=== PATIENT | male | born 1985 | race Caucasian/White ===

== ENCOUNTER 2018-07-21 18:54 | Emergency (ER) | payer MEDICAID ==
[~2018-07-21] VITALS: Ht 180.3 cm; Wt 84.4 kg
[~2018-07-21 18:54] MED LIST: METHADONE PO
[2018-07-21 19:00] VITALS: BP 138/68
[2018-07-21] MEDS ORDERED: LIDOCAINE W/ EPINEPHRINE 1 % INJ 30ML ONE (20:02)
[2018-07-21] MEDS ORDERED: LIDOCAINE W/ EPINEPHRINE 1% 20ML VIAL ID ONE (20:15)
[2018-07-21] MEDS ORDERED: cefTRIAXone SOD 1,000 MG VL ONE ×2 (20:26→20:28)
[2018-07-21] MEDS ORDERED: LIDOCAINE 1% (LOCAL ANESTH.) PF 5ml SDV ONE (20:27)
[2018-07-21] MEDS ORDERED: cefTRIAXone SOD 1,000 MG VL IM ONE ×2 (20:30→20:45)
== END 2018-07-22 01:55 | disposition home or self-care (01) ==
LOC: ER 18:54
DX: L02.416 Cutaneous abscess of left lower limb (principal); F32.9 Major depressive disorder, single episode, unspecified; F11.10 Opioid abuse, uncomplicated
CPT/HCPCS: 10060; 96372; 99283; J0696; J2001

== ENCOUNTER 2020-12-09 03:36 | Emergency (ER) | payer MEDICARE, MEDICAID ==
[~2020-12-09] VITALS: Ht 180.3 cm; Wt 83.9 kg
[2020-12-09 03:39] VITALS: BP 140/95
== END 2020-12-09 04:52 | disposition left against medical advice (07) ==
LOC: ER 03:39
DX: L02.413 Cutaneous abscess of right upper limb (principal); Z53.21 Procedure and treatment not carried out due to patient leaving prior to being seen by health care provider

== ENCOUNTER 2020-12-15 11:25 | Emergency (ER) | payer MEDICARE, MEDICAID ==
[~2020-12-15] VITALS: Ht 180.3 cm; Wt 83.9 kg
[2020-12-15 11:33] VITALS: BP 146/93
[2020-12-15] MEDS ORDERED: LIDOCAINE 1% HCL (LOCAL ANESTH.) INJ 20ML MDV IJ ONE (12:15)
[2020-12-15] MEDS ORDERED: cefTRIAXone SOD 1,000 MG VL IM ONE (12:15)
== END 2020-12-15 14:49 | disposition home or self-care (01) ==
LOC: ER 11:25
DX: L02.413 Cutaneous abscess of right upper limb (principal)
CPT/HCPCS: 10060; 96372; 99283; J0696; J2001

== ENCOUNTER 2021-09-07 08:21 | Inpatient (IN) | payer MEDICARE, MEDICAID ==
[~2021-09-07] VITALS: Ht 180.3 cm; Wt 81.6 kg
[2021-09-07] MEDS ORDERED: CLINDAMYCIN 900MG IV 50 ML IV ONE (09:30)
[2021-09-07] MEDS ORDERED: cefTRIAXone 1GM/50ML D5W 50 ML IV ONE (09:30)
[2021-09-07 10:35] LABS: Basophils # (auto) 0 10 ^3/uL (0-0.2); Basophils % (auto) 0.5 % (0.0-2.0); Eosinophils # (auto) 0.1 10 ^3/uL (0-0.8); Eosinophils % (auto) 1.6 % (0.0-7.0); Hematocrit 38.1 % (41.0-53.0); Hemoglobin 12.6 g/dL (13.5-17.5); Lymphocytes % (auto) 23.4 % (10.0-50.0); Mean Corpuscular Hemoglobin 29.3 pg (28.0-32.0); Mean Corpuscular Hgb Conc. 33.1 g/dL (32.0-36.0); Mean Corpuscular Volume 88.6 fL (80.0-100.0); Monocytes # (auto) 0.6 10 ^3/uL (0-1.3); Monocytes % (auto) 7.5 % (0.0-12.0); Neutrophils # (auto) 5.7 10 ^3/uL (1.6-8.6); Red Cell Distribution Width 12.8 % (11.8-14.3); White Blood Cell 8.5 10^3/uL (4.4-10.8)
[2021-09-07 10:49] LABS: Albumin 2.9 g/dL (3.4-5.0); Anion Gap 11 (5-15); Blood Urea Nitrogen 14 mg/dL (7-18); Calcium 8.4 mg/dL (8.5-10.1); Carbon Dioxide 22 mmol/L (21-32); Chloride 102 mmol/L (98-107); Glucose 122 mg/dL (74-106); Potassium 3.5 mmol/L (3.5-5.1); Sodium 135 mmol/L (136-145)
[2021-09-07 10:51] LABS: Alanine Aminotransferase 20 U/L (16-61); Aspartate Aminotransferase 18 U/L (15-37); BUN/Creatinine Ratio 13.9; GFR African American 107 mL/min; GFR Non-African American 89 mL/min
[2021-09-07 10:56] LABS: Alkaline Phosphatase 107 U/L (45-117); Bilirubin, Total 0.5 mg/dL (0.2-1.0); Total Protein 8.4 g/dL (6.4-8.2)
[2021-09-07] MEDS ORDERED: NITROGLYCERIN 0.4 MG SL TAB SL PRN (13:45)
[2021-09-07] MEDS ORDERED: MORPHINE SULFATE INJECTION 2 MG/ML SYRG IV PRN ×2 (13:45)
[2021-09-07] MEDS ORDERED: ALPRAZolam 0.25 MG TAB PO PRN (13:45)
[2021-09-07] MEDS ORDERED: CLINDAMYCIN 300MG IV 50 ML IV SCH (14:00)
[2021-09-07 16:44] VITALS: BP 130/70
[2021-09-07 17:00] VITALS: BP 115/70
[2021-09-08] MEDS ORDERED: cefTRIAXone 1GM/50ML D5W 50 ML IV SCH (09:00)
[2021-09-11] MEDS ORDERED: DOXY-286 PO (11:10)
[2021-09-11] MEDS ORDERED: MUPI2CRE17 EX (11:10)
== END 2021-09-07 22:07 | disposition left against medical advice (07) | DRG 603 ==
LOC: ER 08:21 → TELE 13:35 → TELE-EAST 16:53
PROVIDERS: ADMIT Nurse Practitioner Acute Care; ATTEND Nurse Practitioner Acute Care
DX: L02.414 Cutaneous abscess of left upper limb (principal); E44.0 Moderate protein-calorie malnutrition; I38 Endocarditis, valve unspecified; F11.10 Opioid abuse, uncomplicated; F15.10 Other stimulant abuse, uncomplicated; F32.A Depression, unspecified; R59.0 Localized enlarged lymph nodes; Z20.822 Contact with and (suspected) exposure to COVID-19
CPT/HCPCS: 36415; 73200; 80053; 84484; 85025; 87426; 93005; 96365; G0378; J0696; J3490

== ENCOUNTER 2021-09-08 13:42 | Inpatient (IN) | payer MEDICARE, MEDICAID ==
[~2021-09-08] VITALS: Ht 175.3 cm; Wt 81.7 kg
[2021-09-08] MEDS ORDERED: CLINDAMYCIN 900MG IV 50 ML IV ONE (16:15)
[2021-09-08] MEDS ORDERED: cefTRIAXone 1GM/50ML D5W 50 ML IV ONE (16:15)
[2021-09-08] MEDS ORDERED: HYDROcodone-ACET 5/325MG TAB PO PRN (18:15)
[2021-09-08] MEDS ORDERED: NITROGLYCERIN 0.4 MG SL TAB SL PRN (18:15)
[2021-09-08] MEDS ORDERED: ACETAMINOPHEN 500 MG TAB PO PRN (18:15)
[2021-09-08] MEDS ORDERED: ALPRAZolam 0.25 MG TAB PO PRN (18:15)
[2021-09-08] MEDS ORDERED: MORPHINE SULFATE INJECTION 2 MG/ML SYRG IV PRN ×2 (18:15)
[2021-09-08] MEDS: SODIUM CHLORIDE 0.9% 1,000 ML IV SCH (18:15)
[2021-09-08] MEDS ORDERED: CLINDAMYCIN HCL 150 MG CAP PO ONE (18:15)
[2021-09-08] MEDS ORDERED: ONDANSETRON HCL 4 MG/2 ML VIAL IV PRN (18:15)
[2021-09-08] MEDS ORDERED: SULFAMETHOX W/TRIMETH(800/160MG) DS TAB PO ONE (18:15)
[2021-09-08] MEDS ORDERED: VANCOMYCIN PER PHARMACY 0 MG IV SCH (19:15)
[2021-09-08] MEDS ORDERED: VANCOMYCIN 1GM/250ML 250 ML IV ONE (20:30)
[2021-09-09] MEDS: SODIUM CHLORIDE 0.9% 1,000 ML IV SCH ×2 (04:15→14:25)
[2021-09-09 10:52] LABS: Basophils # (auto) 0 10 ^3/uL (0-0.2); Basophils % (auto) 0.4 % (0.0-2.0); Eosinophils # (auto) 0.1 10 ^3/uL (0-0.8); Eosinophils % (auto) 1.3 % (0.0-7.0); Hematocrit 36.3 % (41.0-53.0); Hemoglobin 12.2 g/dL (13.5-17.5); Lymphocytes # (auto) 1.1 10 ^3/uL (0.4-5.4); Lymphocytes % (auto) 12.7 % (10.0-50.0); Mean Corpuscular Hemoglobin 29.8 pg (28.0-32.0); Mean Corpuscular Hgb Conc. 33.5 g/dL (32.0-36.0); Mean Corpuscular Volume 88.9 fL (80.0-100.0); Monocytes # (auto) 0.6 10 ^3/uL (0-1.3); Monocytes % (auto) 6.9 % (0.0-12.0); Neutrophils # (auto) 6.6 10 ^3/uL (1.6-8.6); Neutrophils % (auto) 78.7 % (37.0-80.0); Red Blood Cells 4.08 10^6/uL (4.5-5.90); Red Cell Distribution Width 12.7 % (11.8-14.3); White Blood Cell 8.4 10^3/uL (4.4-10.8)
[2021-09-09 11:08] LABS: Albumin 2.8 g/dL (3.4-5.0); Calcium 8.8 mg/dL (8.5-10.1); Potassium 3.9 mmol/L (3.5-5.1)
[2021-09-09] MEDS: cefTRIAXone 1GM/50ML D5W 50 ML IV SCH (11:08)
[2021-09-09 11:13] LABS: BUN/Creatinine Ratio 12.2; Bilirubin, Total 0.3 mg/dL (0.2-1.0); Total Protein 8.1 g/dL (6.4-8.2)
[2021-09-09 11:35] LABS: INR 1.12 (0.9-1.15); Partial Thromboplastin Time 35.2 sec (23.6-33.0)
[2021-09-09] MEDS: VANCOMYCIN 1GM/250ML 250 ML IV SCH (12:16)
[2021-09-09 17:20] VITALS: BP 144/91
[2021-09-09 20:35] LABS: Amphetamine Screen, Urine POSITIVE (NEGATIVE); Barbiturate Scree,Urine NEGATIVE (NEGATIVE); Benzodiazephine Screen, Urine NEGATIVE (NEGATIVE); Cannabinoid Screen, Urine NEGATIVE (NEGATIVE); Cocaine Screen, Urine NEGATIVE (NEGATIVE); Opiate Scree,Urine POSITIVE (NEGATIVE); Phencyclidine Screen, Urine NEGATIVE (NEGATIVE)
[2021-09-09 22:00] VITALS: BP 116/64
[2021-09-10] MEDS: VANCOMYCIN 1GM/250ML 250 ML IV SCH ×2 (00:04→12:51)
[2021-09-10] MEDS: SODIUM CHLORIDE 0.9% 1,000 ML IV SCH ×3 (00:04→18:11)
[2021-09-10 05:00] VITALS: BP 117/66
[2021-09-10 09:07] VITALS: BP 129/73
[2021-09-10] MEDS: cefTRIAXone 1GM/50ML D5W 50 ML IV SCH (09:08)
[2021-09-10 10:33] LABS: Basophils # (auto) 0 10 ^3/uL (0-0.2); Basophils % (auto) 0.4 % (0.0-2.0); Eosinophils # (auto) 0.2 10 ^3/uL (0-0.8); Eosinophils % (auto) 2.4 % (0.0-7.0); Hematocrit 37.2 % (41.0-53.0); Hemoglobin 12.1 g/dL (13.5-17.5); Lymphocytes # (auto) 1.2 10 ^3/uL (0.4-5.4); Lymphocytes % (auto) 17.1 % (10.0-50.0); Mean Corpuscular Hgb Conc. 32.5 g/dL (32.0-36.0); Mean Corpuscular Volume 89.3 fL (80.0-100.0); Monocytes # (auto) 0.5 10 ^3/uL (0-1.3); Monocytes % (auto) 6.8 % (0.0-12.0); Neutrophils # (auto) 5.2 10 ^3/uL (1.6-8.6); Neutrophils % (auto) 73.3 % (37.0-80.0); Nucleated Red Blood Cells % 0.1 %; Red Blood Cells 4.17 10^6/uL (4.5-5.90); Red Cell Distribution Width 12.6 % (11.8-14.3); White Blood Cell 7.1 10^3/uL (4.4-10.8)
[2021-09-10 10:44] LABS: BUN/Creatinine Ratio 13.6; Calcium 8.2 mg/dL (8.5-10.1); Magnesium 2.3 mg/dL (1.6-2.6); Potassium 4.1 mmol/L (3.5-5.1)
[2021-09-10 13:00] VITALS: BP 111/73
[2021-09-10 16:48] VITALS: BP 149/91
[2021-09-10] MEDS: MUPIROCIN 2% OINT 15gm or 22gm EACHNOSTRI SCH (22:00)
[2021-09-10 22:02] VITALS: BP 100/57
[2021-09-11] MEDS: VANCOMYCIN 1GM/250ML 250 ML IV SCH ×2 (00:19→12:00)
[2021-09-11 05:05] VITALS: BP 128/78
[2021-09-11 08:30] VITALS: BP 123/59
[2021-09-11] MEDS: SODIUM CHLORIDE 0.9% 1,000 ML IV SCH (09:25)
[2021-09-11] MEDS: cefTRIAXone 1GM/50ML D5W 50 ML IV SCH (09:43)
[2021-09-11] MEDS: MUPIROCIN 2% OINT 15gm or 22gm EACHNOSTRI SCH (09:52)
[2021-09-11] MEDS ORDERED: DOXY-286 PO (11:10)
[2021-09-11] MEDS ORDERED: MUPI2CRE17 EX (11:10)
== END 2021-09-11 15:12 | disposition home or self-care (01) | DRG 603 ==
LOC: ER 13:42 → TELE 18:04 → TELE-WESTW 09-09 16:10
PROVIDERS: ADMIT Nurse Practitioner Acute Care; ATTEND Internal Medicine
PROC: 05HB33Z Insertion of Infusion Device into Right Basilic Vein, Percutaneous Approach (ICD-10-PCS; principal; 2021-09-09)
PROC: B54MZZA Ultrasonography of Right Upper Extremity Veins, Guidance (ICD-10-PCS; 2021-09-09)
DX: L03.114 Cellulitis of left upper limb (principal); L02.414 Cutaneous abscess of left upper limb; F11.10 Opioid abuse, uncomplicated; F15.10 Other stimulant abuse, uncomplicated; Z20.822 Contact with and (suspected) exposure to COVID-19; Z91.19 Patient's noncompliance with other medical treatment and regimen; B95.62 Methicillin resistant Staphylococcus aureus infection as the cause of diseases classified elsewhere
CPT/HCPCS: 36415; 76881; 80048; 80053; 80202; 80307; 83735; 85025; 85610; 85730; 87040; 87077; 87081; 87186; 87205; 87426; 93306; G0378; J0696

== ENCOUNTER 2022-07-10 17:13 | Emergency (ER) | payer MEDICAID, MEDICARE ==
[~2022-07-10] VITALS: Ht 180.3 cm; Wt 87.0 kg
[~2022-07-10 17:13] MED LIST changes: +DOXY-286 PO; +MUPI2CRE17 EX
[2022-07-10 17:41] VITALS: BP 127/89
== END 2022-07-10 17:41 ==
LOC: ER 17:13
DX: F17.210 Nicotine dependence, cigarettes, uncomplicated; Z79.2 Long term (current) use of antibiotics; Z79.899 Other long term (current) drug therapy

== ENCOUNTER → 2022-09-19 | Emergency (ER) | payer MEDICAID ==
[~2022-09-19] VITALS: Ht 180.3 cm; Wt 84.0 kg
[2022-09-20] VITALS: BP 160/87
== END | disposition home or self-care (01) ==
LOC: ER 21:38
DX: F15.10 Other stimulant abuse, uncomplicated (principal); F11.10 Opioid abuse, uncomplicated; F17.210 Nicotine dependence, cigarettes, uncomplicated

== ENCOUNTER 2022-10-19 08:12 | Emergency (ER) | payer MEDICAID ==
[~2022-10-19] VITALS: Ht 180.3 cm; Wt 84.0 kg
[2022-10-19 09:45] VITALS: BP 139/93
[2022-10-19 16:17] LABS: Urine Bacteria MANY /hpf (None Seen); Urine Blood Negative /uL (Negative); Urine Mucus FEW (None Seen); Urine Specific Gravity 1.028 (1.001-1.035); Urine Sperm PRESENT /hpf (None Seen); Urine WBC <1 /hpf (0 - 3)
== END 2022-10-19 20:41 | disposition left against medical advice (07) ==
LOC: ER 08:12
DX: H57.89 Other specified disorders of eye and adnexa (principal); R07.89 Other chest pain; Z53.21 Procedure and treatment not carried out due to patient leaving prior to being seen by health care provider
CPT/HCPCS: 81001; 93005

== ENCOUNTER 2022-11-04 16:55 | Emergency (ER) | payer MEDICAID ==
[~2022-11-04] VITALS: Ht 180.3 cm; Wt 84.0 kg
[2022-11-04 19:29] VITALS: BP 155/87
[2022-11-04 20:12] LABS: Urine Bacteria FEW /hpf (None Seen); Urine Blood Negative /uL (Negative); Urine Hyaline Cast FEW /lpf (0 - 2); Urine Mucus FEW (None Seen); Urine Specific Gravity 1.028 (1.001-1.035); Urine Sperm PRESENT /hpf (None Seen); Urine WBC 2 /hpf (0 - 3)
== END 2022-11-05 07:35 | disposition left against medical advice (07) ==
LOC: ER 16:55
DX: R60.9 Edema, unspecified (principal); F11.10 Opioid abuse, uncomplicated; F17.210 Nicotine dependence, cigarettes, uncomplicated; F15.10 Other stimulant abuse, uncomplicated
CPT/HCPCS: 71045; 81001; 93005

== ENCOUNTER 2022-11-12 17:54 | Emergency (ER) | payer MEDICAID ==
[~2022-11-12] VITALS: Ht 182.9 cm; Wt 85.6 kg
[2022-11-12] MEDS ORDERED: cloNIDine HCL 0.1 MG TAB PO ONE (19:15)
[2022-11-12] MEDS ORDERED: levoFLOXacin 500 MG TAB PO ONE (19:15)
[2022-11-12 20:04] LABS: Basophils # (auto) 0 10 ^3/uL (0-0.2); Basophils % (auto) 0.6 % (0.0-2.0); Eosinophils # (auto) 0.1 10 ^3/uL (0-0.8); Eosinophils % (auto) 1.8 % (0.0-7.0); Hematocrit 39.8 % (41.0-53.0); Hemoglobin 13.1 g/dL (13.5-17.5); Lymphocytes % (auto) 22.1 % (10.0-50.0); Mean Corpuscular Hemoglobin 29.8 pg (28.0-32.0); Mean Corpuscular Hgb Conc. 32.9 g/dL (32.0-36.0); Mean Corpuscular Volume 90.6 fL (80.0-100.0); Monocytes # (auto) 0.3 10 ^3/uL (0-1.3); Monocytes % (auto) 6.4 % (0.0-12.0); Neutrophils # (auto) 3.1 10 ^3/uL (1.6-8.6); Neutrophils % (auto) 69.1 % (37.0-80.0); Red Blood Cells 4.39 10^6/uL (4.5-5.90); Red Cell Distribution Width 12.6 % (11.8-14.3); White Blood Cell 4.5 10^3/uL (4.4-10.8)
[2022-11-12 20:21] LABS: INR 1.03 (0.9-1.15)
[2022-11-12] MEDS ORDERED: BACDST PO (21:24)
[2022-11-12] MEDS ORDERED: CEPH-510 PO (21:25)
[2022-11-12 22:36] LABS: Albumin 3.8 g/dL (3.4-5.0); Calcium 8.9 mg/dL (8.5-10.1); Potassium 3.6 mmol/L (3.5-5.1)
[2022-11-12 22:38] LABS: BUN/Creatinine Ratio 18.2
[2022-11-12 22:41] LABS: Bilirubin, Total 0.4 mg/dL (0.2-1.0); Total Protein 8.1 g/dL (6.4-8.2)
[2022-11-13 04:13] VITALS: BP 146/94
== END 2022-11-13 04:33 | disposition home or self-care (01) ==
LOC: ER 17:54
DX: L03.116 Cellulitis of left lower limb (principal); I10 Essential (primary) hypertension; F32.9 Major depressive disorder, single episode, unspecified; F17.210 Nicotine dependence, cigarettes, uncomplicated; F15.90 Other stimulant use, unspecified, uncomplicated; Z79.899 Other long term (current) drug therapy
CPT/HCPCS: 36415; 73590; 73610; 73630; 80053; 85025; 85379; 85610; 85730; 87040; 93971

== ENCOUNTER 2023-03-16 13:21 | Emergency (ER) | payer MEDICARE, MEDICAID ==
[~2023-03-16] VITALS: Ht 180.3 cm; Wt 84.0 kg
[~2023-03-16 13:21] MED LIST changes: +BACDST PO; +CEPH-510 PO
[2023-03-16 15:00] VITALS: BP 150/90
[2023-03-16] MEDS ORDERED: DIPH25CA66 PO (15:18)
[2023-03-16] MEDS ORDERED: HYD1TP TOP (15:18)
== END 2023-03-16 15:22 | disposition home or self-care (01) ==
LOC: ER 13:21 → OVERFLOW 03-17 13:49 → UNDOADMIN 03-17 13:49 → UNDODISIN 03-17 15:19
DX: L25.9 Unspecified contact dermatitis, unspecified cause (principal); F17.210 Nicotine dependence, cigarettes, uncomplicated; F15.10 Other stimulant abuse, uncomplicated; F14.10 Cocaine abuse, uncomplicated
CPT/HCPCS: G0378

== ENCOUNTER 2023-04-05 20:37 | Emergency (ER) | payer MEDICARE, MEDICAID ==
[~2023-04-05] VITALS: Ht 180.3 cm; Wt 185.0 kg
[~2023-04-05 20:37] MED LIST changes: +DIPH25CA66 PO; +HYD1TP TOP
[2023-04-06 06:08] VITALS: BP 144/71
== END 2023-04-06 06:15 | disposition home or self-care (01) ==
LOC: ER 20:37
DX: L85.3 Xerosis cutis (principal); F11.10 Opioid abuse, uncomplicated; F15.10 Other stimulant abuse, uncomplicated; F17.210 Nicotine dependence, cigarettes, uncomplicated; Z79.2 Long term (current) use of antibiotics; Z79.899 Other long term (current) drug therapy
CPT/HCPCS: 86592

== ENCOUNTER 2023-05-24 22:10 | Emergency (ER) | payer MEDICARE, MEDICAID ==
[~2023-05-24] VITALS: Ht 180.3 cm; Wt 86.4 kg
[2023-05-25 02:05] VITALS: BP 146/75
[2023-05-25 02:08] LABS: Urine Bacteria MOD /hpf (None Seen); Urine Blood Negative /uL (Negative); Urine Mucus FEW (None Seen); Urine Specific Gravity 1.028 (1.001-1.035); Urine Sperm PRESENT /hpf (None Seen); Urine WBC 2 /hpf (0 - 3)
[2023-05-25 02:48] LABS: Amphetamine Screen, Urine POSITIVE (NEGATIVE); Barbiturate Scree,Urine NEGATIVE (NEGATIVE); Benzodiazephine Screen, Urine NEGATIVE (NEGATIVE); Cannabinoid Screen, Urine NEGATIVE (NEGATIVE); Cocaine Screen, Urine NEGATIVE (NEGATIVE); Opiate Scree,Urine NEGATIVE (NEGATIVE)
[2023-05-25 02:55] LABS: Phencyclidine Screen, Urine NEGATIVE (NEGATIVE)
[2023-05-25 05:29] LABS: Alcohol, Urine < 3.0 mg/dL (0-10)
[2023-05-27 05:07] LABS: RPR Non Reactive (Non Reactive)
== END 2023-05-25 02:54 | disposition left against medical advice (07) ==
LOC: ER 22:17
DX: R22.33 Localized swelling, mass and lump, upper limb, bilateral (principal); Z79.899 Other long term (current) drug therapy; Z53.21 Procedure and treatment not carried out due to patient leaving prior to being seen by health care provider
CPT/HCPCS: 80307; 81001; 86592; 87491; 87591; 99281; C9803

== ENCOUNTER 2023-10-04 18:10 | Emergency (ER) | payer MEDICARE, MEDICAID ==
[~2023-10-04] VITALS: Ht 182.9 cm; Wt 81.8 kg
[2023-10-04 22:00] VITALS: BP 150/89; PULSE 107; TEMP 98.9
[2023-10-05 01:13] VITALS: RESP 14; O2SAT 100
[2023-10-05 02:04] LABS: Amphetamine Screen, Urine Pos (NEGATIVE); Barbiturate Scree,Urine Neg (NEGATIVE); Benzodiazephine Screen, Urine Neg (NEGATIVE); Cannabinoid Screen, Urine Neg (NEGATIVE); Cocaine Screen, Urine Neg (NEGATIVE); Opiate Scree,Urine Neg (NEGATIVE); Phencyclidine Screen, Urine Neg (NEGATIVE)
[2023-10-05 02:11] LABS: Urine Bacteria FEW /hpf (None Seen); Urine Blood Negative /uL (Negative); Urine Clarity Clear (Clear); Urine Protein, UAD Negative (Negative); Urine Specific Gravity 1.013 (1.001-1.035); Urine Sperm PRESENT /hpf (None Seen); Urine Urobilinogen Normal (Negative); Urine WBC 4 /hpf (0 - 3)
[2023-10-05 02:13] LABS: Basophils # (auto) 0 10 ^3/uL (0-0.2); Basophils % (auto) 0.6 % (0.0-2.0); Eosinophils # (auto) 0.1 10 ^3/uL (0-0.8); Eosinophils % (auto) 2.5 % (0.0-7.0); Hematocrit 34.6 % (41.0-53.0); Hemoglobin 11.5 g/dL (13.5-17.5); Lymphocytes # (auto) 1.6 10 ^3/uL (0.4-5.4); Lymphocytes % (auto) 28.7 % (10.0-50.0); Mean Corpuscular Hemoglobin 29.5 pg (28.0-32.0); Mean Corpuscular Hgb Conc. 33.1 g/dL (32.0-36.0); Mean Corpuscular Volume 89.3 fL (80.0-100.0); Monocytes # (auto) 0.6 10 ^3/uL (0-1.3); Monocytes % (auto) 10.1 % (0.0-12.0); Neutrophils # (auto) 3.3 10 ^3/uL (1.6-8.6); Neutrophils % (auto) 58.1 % (37.0-80.0); Nucleated Red Blood Cells % 0.1 %; Red Blood Cells 3.88 10^6/uL (4.5-5.90); Red Cell Distribution Width 12.3 % (11.8-14.3); White Blood Cell 5.6 10^3/uL (4.4-10.8)
[2023-10-05 02:28] LABS: INR 1.09 (0.9-1.15); Partial Thromboplastin Time 37.3 SEC (24.5-34.5); Prothrombin Time 11.4 sec (9.3-11.8)
[2023-10-05 02:30] LABS: Urine Color STRAW (Yellow)
[2023-10-05 02:32] LABS: Alanine Aminotransferase 23 U/L (7-40); Albumin 3.8 g/dL (3.2-4.8); Alkaline Phosphatase 92 U/L (46-116); Anion Gap 5 (5-15); Aspartate Aminotransferase 25 U/L (13-40); BUN/Creatinine Ratio 10.9 (10.0-20.0); Blood Alcohol < 3.0 mg/dL (<10); Blood Urea Nitrogen 11 mg/dL (9-23); Carbon Dioxide 26 mmol/L (20-30); Chloride 108 mmol/L (98-107); Glucose 102 mg/dL (74-106); Lipase 44 U/L (12-53); Potassium 3.6 mmol/L (3.5-5.1); Sodium 139 mmol/L (136-145)
[2023-10-05 02:33] LABS: Bilirubin, Total 0.4 mg/dL (0.2-1.0); Total Protein 6.4 g/dL (5.7-8.2)
== END 2023-10-05 06:59 | disposition home or self-care (01) ==
LOC: EDBD 18:10 → EDUNIT# 18:10 → ER 18:10
DX: F22 Delusional disorders (principal); F23 Brief psychotic disorder; F15.10 Other stimulant abuse, uncomplicated; F41.9 Anxiety disorder, unspecified; F17.210 Nicotine dependence, cigarettes, uncomplicated; Z79.899 Other long term (current) drug therapy
CPT/HCPCS: 36415; 80053; 80307; 80320; 80329; 81001; 82010; 82140; 82553; 83605; 83690; 83735; 83880; 83930; 84443; 84484; 85025; 85610; 85730

== ENCOUNTER 2023-12-08 17:50 | Emergency (ER) | payer MEDICARE, MEDICAID ==
[~2023-12-08] VITALS: Ht 182.9 cm; Wt 85.0 kg
[2023-12-08 17:55] VITALS: BP 139/93; PULSE 100; RESP 18; O2SAT 93
== END 2023-12-08 20:57 | disposition left against medical advice (07) ==
LOC: ER 17:50
DX: S09.90XA Unspecified injury of head, initial encounter (principal); Z53.21 Procedure and treatment not carried out due to patient leaving prior to being seen by health care provider; X58.XXXA Exposure to other specified factors, initial encounter; Y93.89 Activity, other specified; Y92.89 Other specified places as the place of occurrence of the external cause; Y99.8 Other external cause status

== ENCOUNTER 2023-12-20 16:23 | Emergency (ER) | payer MEDICARE, MEDICAID ==
[~2023-12-20] VITALS: Ht 180.3 cm; Wt 84.1 kg
[2023-12-20] MEDS ORDERED: CEPHALEXIN 250 MG CAP PO ONE (17:30)
[2023-12-20] MEDS ORDERED: CEPH500C PO (17:35)
[2023-12-20] MEDS ORDERED: MUPI2OIN2 TOP (17:35)
[2023-12-20 18:28] VITALS: BP 152/96; PULSE 89; RESP 18; TEMP 98.9; O2SAT 100
== END 2023-12-20 18:40 | disposition home or self-care (01) ==
LOC: ER 16:23
DX: S00.86XA Insect bite (nonvenomous) of other part of head, initial encounter (principal); L08.9 Local infection of the skin and subcutaneous tissue, unspecified; F17.210 Nicotine dependence, cigarettes, uncomplicated; F15.10 Other stimulant abuse, uncomplicated; W57.XXXA Bitten or stung by nonvenomous insect and other nonvenomous arthropods, initial encounter; Y93.89 Activity, other specified; Y92.89 Other specified places as the place of occurrence of the external cause; Y99.8 Other external cause status

== ENCOUNTER 2023-12-31 17:34 | Emergency (ER) | payer MEDICARE, MEDICAID ==
[~2023-12-31] VITALS: Ht 180.3 cm; Wt 88.7 kg
[~2023-12-31 17:34] MED LIST changes: +CEPH500C PO; +MUPI2OIN2 TOP
[2023-12-31] MEDS ORDERED: MUPI2OIN2 EX (18:12)
[2023-12-31 18:27] VITALS: BP 148/70; PULSE 100; RESP 18; TEMP 98; O2SAT 97
== END 2023-12-31 18:29 | disposition home or self-care (01) ==
LOC: ER 17:34
DX: S00.86XA Insect bite (nonvenomous) of other part of head, initial encounter (principal); S60.562A Insect bite (nonvenomous) of left hand, initial encounter; S60.561A Insect bite (nonvenomous) of right hand, initial encounter; F17.210 Nicotine dependence, cigarettes, uncomplicated; F15.10 Other stimulant abuse, uncomplicated; Z76.0 Encounter for issue of repeat prescription; W57.XXXA Bitten or stung by nonvenomous insect and other nonvenomous arthropods, initial encounter; Y93.89 Activity, other specified; Y92.89 Other specified places as the place of occurrence of the external cause; Y99.8 Other external cause status

== ENCOUNTER 2024-01-25 08:33 | Emergency (ER) | payer MEDICARE, MEDICAID ==
[~2024-01-25] VITALS: Ht 180.3 cm; Wt 85.4 kg
[~2024-01-25 08:33] MED LIST changes: +MUPI2OIN2 EX
[2024-01-25 08:35] VITALS: BP 147/97; PULSE 107; RESP 20; TEMP 97.8; O2SAT 96
[2024-01-25] MEDS: methylPREDNISolone SOD SUCC 125 MG/2 ML VL IM ONE (09:22)
[2024-01-25] MEDS: cefTRIAXone SOD 1,000 MG VL IM ONE (09:22)
[2024-01-25] MEDS ORDERED: MUPI2OIN2 TOP (09:23)
[2024-01-25] MEDS ORDERED: CEPH500C PO (09:23)
[2024-01-25] MEDS: LIDOCAINE 1% HCL (LOCAL ANESTH.) INJ 20ML MDV ID ONE (09:38)
== END 2024-01-25 09:38 | disposition home or self-care (01) ==
LOC: ER 08:33
DX: L25.9 Unspecified contact dermatitis, unspecified cause (principal); L03.116 Cellulitis of left lower limb; F15.10 Other stimulant abuse, uncomplicated; F17.210 Nicotine dependence, cigarettes, uncomplicated
CPT/HCPCS: 96372; 99284; J0696; J2001; J2930

== ENCOUNTER 2024-03-16 10:25 | Inpatient (IN) | payer MEDICARE, MEDICAID ==
[~2024-03-16] VITALS: Ht 182.9 cm; Wt 89.0 kg
[2024-03-16] MEDS ORDERED: SODIUM CHLORIDE 0.9% 1,000 ML IVB ONE (10:45)
[2024-03-16 11:27] LABS: Alanine Aminotransferase 20 U/L (7-40); Albumin 4.2 g/dL (3.2-4.8); Alkaline Phosphatase 90 U/L (46-116); Anion Gap 8 (5-15); Aspartate Aminotransferase 18 U/L (13-40); BUN/Creatinine Ratio 18.1 (10.0-20.0); Bilirubin, Total 0.6 mg/dL (0.2-1.0); Blood Urea Nitrogen 17 mg/dL (9-23); Calcium 9.7 mg/dL (8.7-10.4); Carbon Dioxide 25 mmol/L (20-30); Chloride 107 mmol/L (98-107); Lipase 32 U/L (12-53); Potassium 4.3 mmol/L (3.5-5.1); Sodium 140 mmol/L (136-145); Total Protein 7.1 g/dL (5.7-8.2)
[2024-03-16 11:31] LABS: Glucose 111 mg/dL (74-106)
[2024-03-16 11:43] LABS: Basophils # (auto) 0 10 ^3/uL (0-0.2); Basophils % (auto) 0.5 % (0.0-2.0); Eosinophils # (auto) 0.2 10 ^3/uL (0-0.8); Eosinophils % (auto) 4.1 % (0.0-7.0); Hematocrit 38.4 % (41.0-53.0); Hemoglobin 12.8 g/dL (13.5-17.5); Lymphocytes # (auto) 1.3 10 ^3/uL (0.4-5.4); Mean Corpuscular Hgb Conc. 33.2 g/dL (32.0-36.0); Mean Corpuscular Volume 90.3 fL (80.0-100.0); Monocytes # (auto) 0.3 10 ^3/uL (0-1.3); Monocytes % (auto) 7.6 % (0.0-12.0); Neutrophils # (auto) 2.2 10 ^3/uL (1.6-8.6); Neutrophils % (auto) 55.8 % (37.0-80.0); Nucleated Red Blood Cells % 0.1 %; Red Blood Cells 4.26 10^6/uL (4.5-5.90); Red Cell Distribution Width 12.8 % (11.8-14.3)
[2024-03-16 11:57] LABS: INR 1.04 (0.9-1.15); Partial Thromboplastin Time 34.2 SEC (24.5-34.5)
[2024-03-16 13:02] LABS: Urine Bacteria MOD /hpf (None Seen); Urine Blood Negative /uL (Negative); Urine Clarity Clear (Clear); Urine Color Light-Yellow (Yellow); Urine Protein, UAD 1+ (Negative); Urine Specific Gravity 1.023 (1.001-1.035); Urine Sperm PRESENT /hpf (None Seen); Urine Urobilinogen Normal (Negative); Urine WBC 3 /hpf (0 - 3); Urine pH 5.5 (5.0-9.0)
[2024-03-16 13:03] LABS: Amphetamine Screen, Urine Pos (NEGATIVE); Barbiturate Scree,Urine Neg (NEGATIVE); Benzodiazephine Screen, Urine Neg (NEGATIVE); Cannabinoid Screen, Urine Neg (NEGATIVE); Cocaine Screen, Urine Neg (NEGATIVE); Opiate Scree,Urine Neg (NEGATIVE); Phencyclidine Screen, Urine Neg (NEGATIVE)
[2024-03-16] MEDS ORDERED: DOCUSATE SOD 100 MG CAP PO PRN (18:30)
[2024-03-16] MEDS ORDERED: MORPHINE SULFATE INJ 2 MG/ml SYRG IV PRN (18:30)
[2024-03-16] MEDS ORDERED: SODIUM CHLORIDE 0.9% 1,000 ML IV SCH (18:30)
[2024-03-16] MEDS ORDERED: ONDANSETRON HCL 4 MG/2 ML VIAL IV PRN (18:30)
[2024-03-16] MEDS: KETOROLAC TROMETH 60MG/2ML VIAL IM ONE (22:19)
[2024-03-17] MEDS ORDERED: PIPERACILLIN-TAZOB 3.375GM 100 ML IV SCH
[2024-03-17 02:53] VITALS: BP 130/66; PULSE 88; RESP 18; TEMP 98; O2SAT 98
== END 2024-03-17 03:49 | disposition left against medical advice (07) | DRG 394 ==
LOC: ER 10:25 → OVERFLOW 18:33
PROVIDERS: ADMIT Nurse Practitioner Family; ATTEND Internal Medicine
DX: K42.0 Umbilical hernia with obstruction, without gangrene (principal); N30.00 Acute cystitis without hematuria; F20.9 Schizophrenia, unspecified; F32.A Depression, unspecified; F17.210 Nicotine dependence, cigarettes, uncomplicated; Z53.29 Procedure and treatment not carried out because of patient's decision for other reasons; K80.50 Calculus of bile duct without cholangitis or cholecystitis without obstruction; F15.90 Other stimulant use, unspecified, uncomplicated; I50.9 Heart failure, unspecified; Z79.899 Other long term (current) drug therapy
CPT/HCPCS: 36415; 74176; 80053; 80307; 81001; 83605; 83690; 83880; 84484; 85025; 85610; 85730; 87040; 96372; G0378; J1885

== ENCOUNTER 2024-03-23 20:25 | Emergency (ER) | payer MEDICARE, MEDICAID ==
[~2024-03-23] VITALS: Ht 195.6 cm; Wt 88.6 kg
[2024-03-24 02:10] VITALS: TEMP 97.6
[2024-03-24 03:45] VITALS: PULSE 61; RESP 13; O2SAT 99
[2024-03-24 06:00] VITALS: BP 119/72; PULSE 67; RESP 22; O2SAT 97
== END 2024-03-24 06:15 | disposition home or self-care (01) ==
LOC: ER 20:25
DX: S09.8XXA Other specified injuries of head, initial encounter (principal); K42.9 Umbilical hernia without obstruction or gangrene; X58.XXXA Exposure to other specified factors, initial encounter; Y93.89 Activity, other specified; Y92.89 Other specified places as the place of occurrence of the external cause; Y99.8 Other external cause status
CPT/HCPCS: 70450

== ENCOUNTER 2024-05-24 23:07 | Emergency (ER) | payer MEDICARE, MEDICAID ==
[2024-05-25] MEDS ORDERED: TRIA0.1O TOP (06:43)
[2024-05-25] MEDS ORDERED: CEPH500C PO (06:43)
== END 2024-05-24 23:55 | disposition left against medical advice (07) ==
LOC: ER 23:07
DX: R10.9 Unspecified abdominal pain (principal); Z53.21 Procedure and treatment not carried out due to patient leaving prior to being seen by health care provider

== ENCOUNTER 2024-05-25 02:03 | Emergency (ER) | payer MEDICARE, MEDICAID ==
[~2024-05-25] VITALS: Ht 180.3 cm; Wt 86.1 kg
[2024-05-25 05:24] VITALS: BP 152/92; PULSE 75; RESP 16; TEMP 97.8
[2024-05-25 06:43] VITALS: O2SAT 99
[2024-05-25] MEDS ORDERED: TRIA0.1O TOP (06:43)
[2024-05-25] MEDS ORDERED: CEPH500C PO (06:43)
== END 2024-05-25 07:10 | disposition home or self-care (01) ==
LOC: ER 02:03
DX: L25.9 Unspecified contact dermatitis, unspecified cause (principal); L73.9 Follicular disorder, unspecified; F32.9 Major depressive disorder, single episode, unspecified; F20.9 Schizophrenia, unspecified; F17.210 Nicotine dependence, cigarettes, uncomplicated; F15.90 Other stimulant use, unspecified, uncomplicated; Z79.899 Other long term (current) drug therapy

== ENCOUNTER 2024-06-16 23:33 | Emergency (ER) | payer MEDICARE, MEDICAID ==
[~2024-06-16] VITALS: Ht 172.7 cm; Wt 87.0 kg
[~2024-06-16 23:33] MED LIST changes: +TRIA0.1O TOP
[2024-06-16 23:50] VITALS: BP 149/100; PULSE 101; RESP 18; O2SAT 98
[2024-06-17] MEDS ORDERED: PER60TP TOP (00:46)
== END 2024-06-17 00:48 | disposition left against medical advice (07) ==
LOC: ER 23:33
DX: L29.9 Pruritus, unspecified (principal); R21 Rash and other nonspecific skin eruption

== ENCOUNTER 2024-07-29 15:43 | Emergency (ER) | payer MEDICARE, MEDICAID ==
[~2024-07-29] VITALS: Ht 180.3 cm; Wt 190.0 kg
[~2024-07-29 15:43] MED LIST changes: +PER60TP TOP
[2024-07-29 15:55] VITALS: BP 137/81; PULSE 88; RESP 20; O2SAT 96
[2024-07-29] MEDS ORDERED: SODIUM CHLORIDE 0.9% 1,000 ML IV ONE (16:30)
[2024-07-29 17:00] LABS: Basophils # (auto) 0 10 ^3/uL (0-0.2); Basophils % (auto) 0.6 % (0.0-2.0); Eosinophils # (auto) 0.2 10 ^3/uL (0-0.8); Eosinophils % (auto) 3.5 % (0.0-7.0); Hematocrit 37.6 % (41.0-53.0); Lymphocytes # (auto) 1.7 10 ^3/uL (0.4-5.4); Lymphocytes % (auto) 40.1 % (10.0-50.0); Mean Corpuscular Hemoglobin 31.3 pg (28.0-32.0); Mean Corpuscular Hgb Conc. 34.5 g/dL (32.0-36.0); Mean Corpuscular Volume 90.6 fL (80.0-100.0); Monocytes # (auto) 0.3 10 ^3/uL (0-1.3); Monocytes % (auto) 7.4 % (0.0-12.0); Neutrophils # (auto) 2.1 10 ^3/uL (1.6-8.6); Neutrophils % (auto) 48.4 % (37.0-80.0); Nucleated Red Blood Cells % 0.1 %; Platelet Count (auto) 134 10^3/uL (140-450); Red Blood Cells 4.15 10^6/uL (4.5-5.90); Red Cell Distribution Width 12.9 % (11.8-14.3); White Blood Cell 4.3 10^3/uL (4.4-10.8)
[2024-07-29 17:11] LABS: Anion Gap 5 (5-15); Carbon Dioxide 27 mmol/L (20-30); Chloride 110 mmol/L (98-107); Potassium 4.1 mmol/L (3.5-5.1); Sodium 142 mmol/L (136-145)
[2024-07-29 17:12] LABS: Calcium 9.6 mg/dL (8.7-10.4)
[2024-07-29] MEDS ORDERED: OLANZapine 5 MG TAB PO ONE (17:15)
[2024-07-29] MEDS ORDERED: LORazepam 2MG/ML-1ML VIAL IV ONE (17:15)
[2024-07-29 17:17] LABS: BUN/Creatinine Ratio 9.2 (10.0-20.0); Blood Urea Nitrogen 10 mg/dL (9-23); Glucose 83 mg/dL (74-106); Magnesium 2.2 mg/dL (1.6-2.6)
== END 2024-07-29 18:20 | disposition left against medical advice (07) ==
LOC: ER 15:43
DX: F22 Delusional disorders (principal); F15.20 Other stimulant dependence, uncomplicated; F20.9 Schizophrenia, unspecified; F32.9 Major depressive disorder, single episode, unspecified; Z79.899 Other long term (current) drug therapy
CPT/HCPCS: 36415; 80048; 83735; 85025

== ENCOUNTER 2024-12-17 20:44 | Emergency (ER) | payer MEDICARE, MEDICAID ==
[~2024-12-17] VITALS: Ht 180.3 cm; Wt 87.0 kg
[2024-12-17] MEDS ORDERED: BACDST PO (21:47)
[2024-12-17] MEDS ORDERED: IBUP-1455 PO (21:47)
--- NOTE | 2024-12-17 21:47 | ED.PDOC ---
Musculoskeletal HPI Comments This patient is a 39-year-old male who arrives the ED today for evaluation of bilateral hand swelling and redness concerns. 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 Patient states that he lives in a dirty home where he believes there may be bed bug and mite infestation. Patient arrives with reddened hands as well as global body excoriations. Patient denies any fever nausea or vomiting. Patient was hypertensive and tachycardic at arrival. Patient may be on illicit drugs at time of evaluation. Chief Complaint: Upper Extremity Time Seen by MD: 20:55 Primary Care Provider: UNKNOWN Reviewed Notes: Nurses Notes Allergies: Coded Allergies: NO KNOWN ALLERGIES (Unverified , 10/19/22) Home Meds Active Scripts Permethrin (Elimite) 5 % Cre, 7 APPLIC TOP ONCE, #60 GRAMS 1 Refill Prov:NANCY CARRANZA PAC 06/17/24 Cephalexin Monohydrate (Cephalexin) 500 Mg Cap, 1 CAP PO QID, #40 CAP Prov:CARLOS DE PAZ PA 05/25/24 Triamcinolone Acetonide (Triamcinolone Acetonide) 0.1 % Oin, 1 APPLIC TOP BID, #30 GRAMS Prov:CARLOS DE PAZ PA 05/25/24 Mupirocin (Pseudomonas Fluores (Mupirocin) 2 % Oin, 1 APPLIC TOP TID for 10 Days, #15 MG Prov:JOHN SMITH MEDICAL TECHNOLOGIST GENERALIST 01/25/24 Cephalexin Monohydrate (Cephalexin) 500 Mg Cap, 1 CAP PO QID for 10 Days, #40 CAP Prov:JOHN SMITH MEDICAL TECHNOLOGIST GENERALIST 24 Mupirocin (Pseudomonas Fluores (Mupirocin) 2 % Oin, 1 APPLIC EX TID for 10 Days, #15 MG Prov:MOLINA,NORALDA Q MATERIAL HANDLING SUPERVISOR 12/31/23 Cephalexin Monohydrate (Cephalexin) 500 Mg Cap, 1 CAP PO QID for 10 Days, #40 CAP Prov:MOLINA,NORALDA Q MATERIAL HANDLING SUPERVISOR 24 Diphenhydramine Hcl (Benadryl Allergy) 25 Mg Cap, 1 CAP PO Q6HPRN PRN, #30 CAP 0 Refills Take 1-2 caps PO every 6 hours as needed for itchiness. Max: 12 caps/24 hours Prov:COLLINS ROBERSON MEDICAL TECHNOLOGIST GENERALIST 03/16/23 Hydrocortone (Hydrocortisone 1%) 1 Applic Ap, 1 APPLIC TOP BID for 7 Days, #30 GRAMS 0 Refills Prov:COLLINS ROBERSON MEDICAL TECHNOLOGIST GENERALIST 03/16/23 Cephalexin ( Keflex 500) 500 Mg Cap, 1 CAP PO QID for 12 Days, #48 CAP Prov:JAQUELINE MONTOYA MD 11/12/22 Sulfamethoxazole W/Trimethopri (Bactrim Ds Tablet) 1 Tab Tb, 1 TAB PO BID for 12 Days, #24 TAB Prov:JAQUELINE MONTOYA MD 11/12/22 Mupirocin Calcium (Topical) (MUPIROCIN) 2 % Cre, 2 % EX BID for 5 Days, #1 CRE 1 application each nostril twice a day for 5 days Prov:ASMITA DENNY MD 09/11/21 Doxycycline Hyclate (DOXYCYCLINE HYCLATE) 100 Mg Tab, 1 TAB PO BID, #20 TAB Prov:ASMITA DENNY MD 09/11/21 Reported Medications [Methadone] No Conflict Check, 50 MG PO 11/27/11 Information Source: Patient Mode of Arrival: Ambulatory Location: Bilateral Extremity Location: Hand Timing: Days Prehospital treatment: None Severity: Moderate Able to Move Extremity: Yes Bear Weight: Fully Pain: Mild Hand Dominance: Right Mechanism: Spontaneous Circumstances: Spontaneous Onset of Symptoms: Spontaneous Symptoms: Swelling, Pain DVT Risk Factors: NONE Past Medical History PAST MEDICAL HISTORY: Depression, Schizophrenia Surgical History: Denies all surgeries Family History Family History: Reviewed,noncontributory to illness Social History Smoker: Non-Smoker Alcohol: Denies ETOH Use Drugs: Methamphetamine Lives In: Home Constitutional: denies: chills, diaphoresis, fatigue, fever, malaise, sweats, weakness, others EENTM: denies: blurred vision, double vision, ear bleeding, ear discharge, ear drainage, ear pain, ear ringing, eye pain, eye redness, hearing loss, mouth pain, mouth swelling, nasal discharge, nose bleeding, nose congestion, nose pain, photophobia, tearing, throat pain, throat swelling, voice changes, others Respiratory: denies: cough, hemoptysis, orthopnea, SOB at rest, shortness of breath, SOB with excertion, stridor, wheezing, others Cardiovascular: denies: chest pain, dizzy spells, diaphoresis, Dyspnea on exertion, edema, irregular heart beat, left arm pain, lightheadedness, palpitations, PND, syncope, others Gastrointestinal: denies: abdomen distended, abdominal pain, blood streaked bowels, constipated, diarrhea, dysphagia, difficulty swallowing, hematemesis, m madonna, nausea, poor appetite, poor fluid intake, rectal bleeding, rectal pain, vomiting, others Genitourinary: denies: burning, dysuria, flank pain, frequency, hematuria, incontinence, penile discharge, penile sore, pain, testicle pain, testicle swelling, urgency, others Neurological: denies: dizziness, fainting, headache, left sided numbness, left sided weakness, numbness, paresthesia, pre-existing deficit, right sided numbness, right sided weakness, seizure, speech problems, tingling, tremors, weakness, others Musculoskeletal: reports: others (Bilateral hand swelling and redness.); denies: back pain, gout, joint pain, joint swelling, muscle pain, muscle stiffness, neck pain Integumetry: denies: bruises, change in color, change in hair/nails, dryness, laceration, lesions, lumps, rash, wounds, others Allergic/Immunocompromised: denies: Difficulty Healing, Frequent Infections, Hives, Itching, others Hematologic/Lymphatic: denies: anemia, blood clots, easy bleeding, easy bruising, swollen glands, others Endocrine: denies: excessive hunger, excessive sweating, excessive thirst, excessive urination, flushing, intolerance to cold, intolerance to heat, unexplained weight gain, unexplained weight loss, others Psychiatric: denies: anxiety, bipolar disorder, depression, hopeless, panic disorder, schizophrenia, sleepless, suicidal, others Physical Exam General Appearance: Moderate Distress ([id number] distress at time of evaluation due to bilateral hand concerns.), Normal HEENT: Normal ENT Inspection, Pharynx Normal, TMs Normal Neck: Full Range of Motion, Non-Tender, Normal, Normal Inspection Respiratory: Chest Non-Tender, Lungs Clear, No Accessory Muscle Use, No Respiratory Distress, Normal Breath Sounds Cardiovascular: No Edema, No JVD, No Murmur, No Gallop, Normal Peripheral Pulses, Regular Rate/Rhythm Breast Exam: Deferred Gastrointestinal: No Organomegaly, Non Tender, No Pulsatile Mass, Normal Bowel Sounds, Soft Genitalia: Deferred Pelvic: Deferred Rectal: Deferred Extremities: Other ([id number] bilateral hand edema noted with her erythema on the palmar and dorsal aspect. Multiple small excoriations noted throughout the hands that are nonspecific for scabies or infestation. Bilateral distal neurovascular intact.) Neurologic: Alert, No Motor Deficits, Normal Affect, Normal Mood, No Sensory Deficits Cerebellar Function: Normal Reflexes: Normal Skin: Dry, Normal Color, Warm Lymphatic: No Adenopathy Was a procedure done? Was a procedure done?: No Differential Diagnosis EXT Differential Diagnosis: Other (Allergic reaction, skin infection) X-Ray, Labs, Meds, VS Vital Signs Date Time Temp Pulse Resp B/P (MAP) Pulse Ox O2 Delivery O2 Flow Rate FiO2 12/17/24 21:30 97.8 106 18 160/96 (117) 98 X-Ray, Labs, Meds, VS Comment Patient received some steroids to reduce inflammation as well as in Tdap update. Patient will be given antibiotics and utilize as directed. If symptoms continue, patient will need to follow up with the primary care provider for Derm atology referral and evaluation. Advised reducing excessive handwashing as the patient has been doing. Advise utilizing a hand cream multiple times a day. Time of 1ST Reevaluation: 21:45 Reevaluation 1ST: Improved Consultation: PCP Patient Education/Counseling: Diagnosis, Treatment Family Education/Counseling: Diagnosis, Treatment Departure 1 Departure Time of Disposition: 21:45 Impression: Primary Impression: Skin infection Disposition: HOME / SELF CARE / HOMELESS Condition: Stable Additional Instructions: Advise utilizing antibiotics as directed until completion. Symptoms continue, patient will need to follow up with primary care provider for Dermatology referral and evaluation. Patient should reduce his hand washing and utilize a hand cream multiple times a day. e-Prescriptions Ibuprofen Micronized (Ibuprofen) 800 Mg Tab 800 MG PO Q8HP PRN, #20 TAB Prov: GEGE HOUSTON PAC 12/17/24 Sulfamethoxazole W/Trimethopri (Bactrim Ds Tablet) 1 Tab Tb 1 TAB PO BID for 7 Days, #14 TAB Prov: GEGE HOUSTON PAC 12/17/24 Discharged With: Self Critical Care Note Critical Care Time?: No Stability Stability form required: No Heart Score Heart Score: Heart Score Response (Comments) Value History N/A 0 EKG N/A 0 Age N/A 0 Risk Factors N/A 0 Troponin N/A 0 Total 0 GEGE HOUSTON PAC Dec 17, 2024 21:47
[2024-12-17] MEDS: KETOROLAC TROMETH 60MG/2ML VIAL IM ONE (22:01)
[2024-12-17] MEDS: SULFAMETHOX W/TRIMETH(800/160MG) DS TAB PO ONE (22:01)
[2024-12-17] MEDS: DexAMETHasone SOD PHOS 10MG/1ML VIAL INJ IM ONE (22:02)
[2024-12-17] MEDS: TETANUS-DIPTH-ACEL PERTUSSIS 0.5ML SYR Tdap IM ONE (22:02)
[2024-12-17 22:15] VITALS: BP 160/96; PULSE 106; RESP 18; TEMP 97.8; O2SAT 98
== END 2024-12-17 22:24 | disposition home or self-care (01) ==
LOC: ER 20:44
DX: R22.33 Localized swelling, mass and lump, upper limb, bilateral (principal); L08.9 Local infection of the skin and subcutaneous tissue, unspecified; Z79.899 Other long term (current) drug therapy
CPT/HCPCS: 90471; 90715; 96372; 99284; J1100; J1885

== ENCOUNTER 2025-01-17 19:30 | Emergency (ER) | payer MEDICARE, MEDICAID ==
[~2025-01-17] VITALS: Ht 180.3 cm; Wt 91.6 kg
[~2025-01-17 19:30] MED LIST changes: +IBUP-1455 PO
--- NOTE | 2025-01-17 20:18 | DVH ---
Procedure: CT CT AB PEL WO CON-NO ORAL OR IV 01/17/2025 07:50 PM Indication: abd pain Comparison Study: CT CT AB PEL WO CON-NO ORAL OR IV on DOS: 03/16/24 Technique: Axial images were obtained and reformatted in coronal and sagittal planes. All CT scans at this medical facility are performed using dose modulation techniques as appropriate t o a performed exam including the following: Automated exposure control was utilized; adjustment of th e MA and/or KV according to patient size; and use of iterative reconstruction technique. CT Dose: CTDI volume is 9.01 mGy. Dose-length product is 513.96 mGy*cm FINDINGS: Lower Chest: Unremarkable. Hepatobiliary: Cholelithiasis with no evidence of cholecystitis. Spleen: Unremarkable. Pancreas: Unremarkable. Adrenal Glands: Unremarkable. tract: The kidneys are normal in size bilaterally without hydronephrosis . A 2 mm nonobstructing stone midpole of the right kidney. The urinary bladder is unremarkable. GI tract: The stomach is grossly normal in appearance. No evidence of small bowel obstruction. The la rge bowel is unremarkable. Mild fecal retention throughout the large bowel. The appendix is normal. Lymphatics: No mesenteric, retroperitoneal or pelvic lymphadenopathy. Mildly prominent bilateral ingu inal lymph nodes are seen measuring up to 2.6 x 1.7 cm Vasculature: The abdominal aorta is normal in in caliber. Pelvic Organs: Unremarkable Bones/soft tissues: No acute abnormality. Moderate-sized fat containing umbilical hernia measuring 1 .6 cm at the neck. Mild multilevel degenerative disc disease and posterior facet arthropathy of the l umbar spine noted. Other: None. IMPRESSION: 1. No CT evidence for acute intra-abdominal or intrapelvic process. 2. Moderate fecal retention throughout the large bowel. 3. Mild bilateral inguinal lymphadenopathy likely reactive in nature. Correlate inflammatory/infecti ous processes in the lower extremities. Follow-up by physical exam or ultrasound is recommended to en sure regression and benignity. 4. Moderate-sized fat containing umbilical hernia.
--- NOTE | 2025-01-17 20:19 | ED.PDOC ---
GI ASSESSMENT HPI Comments HPI: HPI: Poor Historian. 39y M who presents to the ED for chief complaint of 30 umbilical abdominal pain - pt has been having umbilical abdominal for the past 6 months on and off. - pt rates the pain 05/01, , with associated exacerbating factor of movement and no relieving factors - pt states he has felt a bulge in his umbilicus for the past 6 months and states it is hernia and states he came today to get it resolved - pt has noted increase in pain over this time period and came today also due to progression of his pain. - pt denies any associated injury and otherwise denies any associated symptoms including nausea, vomiting, diarrhea, fever, cough, chills, dysuria, chest pain, or shortness of breath - per prior notes, pt was admitted to [facility] in 02/2024 and dx with umbilical hernia with possible strangulation but pt eloped prior to any interventions being performed. Past medical history: Methamphetamine and methamphetamine abuse Past surgical history: denies Social history: denies tobacco use, denies ETOH use, endorses METH and Fentanyl use Medications: denies Allergies: nkda REVIEW OF SYSTEMS: CONSTITUTIONAL: Denies acute: fever, diaphoresis, chills, generalized weakness. HEAD: Denies acute: headache, photophobia Eyes: Denies acute: Double vision, vision loss, eye pain, eye discharge. EARS: Denies acute: tinnitus, hearing loss, ear discharge, ear pain, THROAT: Denies acute: sore throat, swelling, difficulty swallowing , pain with swallowing, change in voice. NECK: Denies acute: neck pain, neck swelling, stiff neck. HEART: Denies acute : chest pain, palpitations, LUNGS: Denies acute: SOB, wheezing, cough, hemoptysis ABDOMEN: Denies acute: Nausea, Vomiting, diarrhea, melena , hematemesis, hematochezia SKIN: Denies acute: rash, lesions, itchiness. EXTREMITIES: Denies acute: calf pain, numbness, tingling, weakness, denies pain in extremity. Denies acute: Low back pain. Neuro: Denies acute: focal neurological deficit, motor or sensory focal neurological deficit, tremors, seizure like activity, confusion, dizziness, change in mental status, loss of bowel or bladder function, cauda equina like symptoms. : Denies acute: dysuria, hematuria, flank pain, increase in urinary frequency. PSYCH: Denies acute: hallucination, suicidal ideation, homicidal ideation. PHYSICAL EXAM: General: no acute distress, awake and alert. Head: normocephalic, atraumatic. Neck: supple, trachea is midline, no swelling. Throat: Normal phonation. Eyes:, no erythema, no purulent discharge, no proptosis, no icterus. Heart: regular rate, regular rhythm, no significant murmur appreciated. Lungs: no apparent respiratory distress, Able to speak in full sentences. No wheezing, no rhonchi, no crackles. No stridors Clear to auscultation bilaterally. Abdomen: Periumbilical tender to palpation, non distended, soft, no guarding, no rebound, + bowel sounds. Noted umbilical hernia. Neuro: Awake, Alert, oriented to name, self, situation, follows commands GCS=15. Speech is normal. Skin: no petechia, no purpura, no cyanosis, non-pale, not jaundice. Lower extremities: --1/4 b/l - Pitting edema. Noted bilateral above the ankle minimal erythema. Possible bilateral cellulitis. However patient did not voice any complaints for his extremities. no deformity, no focal swelling, no calf TTP. Makes eye contact. moves all four extremities. Face: no apparent facial droop. Ambulating in the ED independently. ED COURSE: Chief Complaint: Abdominal Pain Time Seen by MD: 20:16 Primary Care Provider: NONE Reviewed Notes: Medications, Allergies Allergies: Coded Allergies: NO KNOWN ALLERGIES (Unverified , 10/19/22) Home Meds Active Scripts Cephalexin Monohydrate (Cephalexin) 500 Mg Cap, 500 MG PO Q6HR for 7 Days, #28 CAP Prov:DIONISIO RODRIGUEZ DO 01/17/25 Ibuprofen Micronized (Ibuprofen) 800 Mg Tab, 800 MG PO Q8HP PRN, #20 TAB Prov:GEGE HOUSTON PAC 12/17/24 Sulfamethoxazole W/Trimethopri (Bactrim Ds Tablet) 1 Tab Tb, 1 TAB PO BID for 7 Days, #14 TAB Prov:GEGE HOUSTON PAC 12/17/24 Permethrin (Elimite) 5 % Cre, 7 APPLIC TOP ONCE, #60 GRAMS 1 Refill Prov:NANCY CARRANZA PAC 06/17/24 Cephalexin Monohydrate (Cephalexin) 500 Mg Cap, 1 CAP PO QID, #40 CAP Prov:CARLOS DE PAZ PA 05/25/24 Triamcinolone Acetonide (Triamcinolone Acetonide) 0.1 % Oin, 1 APPLIC TOP BID, #30 GRAMS Prov:CARLOS DE PAZ PA 05/25/24 Mupirocin (Pseudomonas Fluores (Mupirocin) 2 % Oin, 1 APPLIC TOP TID for 10 Days , #15 MG Prov:JOHN SMITH RUFFLING MACHINE OPERATOR 01/25/24 Cephalexin Monohydrate (Cephalexin) 500 Mg Cap, 1 CAP PO QID for 10 Days, #40 CAP Prov:JOHN SMITH RUFFLING MACHINE OPERATOR 01/25/24 Mupirocin (Pseudomonas Fluores (Mupirocin) 2 % Oin, 1 APPLIC EX TID for 10 Days, #15 MG Prov:MOLINASTORMALDA Q SERVICES MANAGER 12/31/23 Cephalexin Monohydrate (Cephalexin) 500 Mg Cap, 1 CAP PO QID for 10 Days, #40 CAP Prov:MOLINA,NORALDA Q SERVICES MANAGER 12/31/23 Diphenhydramine Hcl (Benadryl Allergy) 25 Mg Cap, 1 CAP PO Q6HPRN PRN, #30 CAP 0 Refills Take 1-2 caps PO every 6 hours as needed for itchiness. Max: 12 caps/24 hours Prov:COLLINS ROBERSON RUFFLING MACHINE OPERATOR 03/16/23 Hydrocortone (Hydrocortisone 1%) 1 Applic Ap, 1 APPLIC TOP BID for 7 Days, #30 GRAMS 0 Refills Prov:COLLINS ROBERSON RUFFLING MACHINE OPERATOR 03/16/23 Cephalexin ( Keflex 500) 500 Mg Cap, 1 CAP PO QID for 12 Days, #48 CAP Prov:JAQUELINE MONTOYA MD 11/12/22 Sulfamethoxazole W/Trimethopri (Bactrim Ds Tablet) 1 Tab Tb, 1 TAB PO BID for 12 Days, #24 TAB Prov:JAQUELINE MONTOYA MD 11/12/22 Mupirocin Calcium (Topical) (MUPIROCIN) 2 % Cre, 2 % EX BID for 5 Days, #1 CRE 1 application each nostril twice a day for 5 days Prov:ASMITA DENNY MD 09/11/21 Doxycycline Hyclate (DOXYCYCLINE HYCLATE) 100 Mg Tab, 1 TAB PO BID, #20 TAB Prov:ASMITA DENNY MD 09/11/21 Reported Medications [Methadone] No Conflict Check, 50 MG PO 11/27/11 Information Source: Patient Mode of Arrival: Ambulatory Brought in by: self Past Medical History PAST MEDICAL HISTORY: Depression, Schizophrenia Surgical History: Denies all surgeries Family History Family History: Reviewed,noncontributory to illness Social History Smoker: Non-Smoker Alcohol: Denies ETOH Use Drugs: Methamphetamine Lives In: Home Was a procedure done? Was a procedure done?: No GI differential Dx Differential Diagnosis: Other (DDX include but not limited to diverticulitis, colitis, gastroenteritis, acute abdomen, SBO, enteritis, constipation, volvulus, appendicitis, Gallbladder disease, choledocolithiasis, ascending cholangitis, pancreatitis, intraAbdominal mass/neoplasm, hepatitis, UTI, pylonephritis, kidney stone, aneurysm, dissection, Inflammatory bowel disease, gastroparesis, ischemic bowel.) X-Ray, Labs, Meds, VS Vital Signs Date Time Temp Pulse Resp B/P (MAP) Pulse Ox O2 Delivery O2 Flow Rate FiO2 01/18/25 00:22 97.9 82 20 122/79 (93) 98 97.9 01/17/25 19:50 97.7 74 18 156/97 (116) 99 Lab Test 01/17/25 20:17 01/17/25 20:11 01/17/25 20:00 Range/Units Lactic Acid Level 1.8 0.4-2.0 mmol/L White Blood Count 4.1 L 4.4-10.8 10^3/uL Red Blood Count 4.60 4.5-5.90 10^6/uL Hemoglobin 13.7 13.5-17.5 g/dL Hematocrit 41.4 41.0-53.0 % Mean Corpuscular Volume 90.0 80.0-100.0 fL Mean Corpuscular Hemoglobin 29.8 28.0-32.0 pg Mean Corpuscular Hemoglobin Concent 33.1 32.0-36.0 g/dL Red Cell Distribution Width 13.0 11.8-14.3 % Platelet Count 145 140-450 10^3/uL Mean Platelet Volume 10.0 6.9-10.8 fL Neutrophils (%) (Auto) 61.4 37.0-80.0 % Lymphocytes (%) (Auto) 27.0 10.0-50.0 % Monocytes (%) (Auto) 8.2 0.0-12.0 % Eosinophils (%) (Auto) 2.7 0.0-7.0 % Basophils (%) (Auto) 0.7 0.0-2.0 % Neutrophils # (Auto) 2.5 1.6-8.6 10 ^3/uL Lymphocytes # (Auto) 1.1 0.4-5.4 10 ^3/uL Monocytes # (Auto) 0.3 0-1.3 10 ^3/uL Eosinophils # (Auto) 0.1 0-0.8 10 ^3/uL Basophils # (Auto) 0 0-0.2 10 ^3/uL Nucleated Red Blood Cells 0.1 % Sodium Level 141 136-145 mmol/L Potassium Level 4.2 3.5-5.1 mmol/L Chloride Level 106 98-107 mmol/L Carbon Dioxide Level 28 20-31 mmol/L Anion Gap 7 5-15 Blood Urea Nitrogen 15 9-23 mg/dL Creatinine 0.96 0.700-1.30 mg/dL Glomerular Filtration Rate Calc 103 >90 mL/min BUN/Creatinine Ratio 15.6 10.0-20.0 Serum Glucose 108 H 74-106 mg/dL Calcium Level 9.9 8.7-10.4 mg/dL Total Bilirubin 0.3 0.2-1.0 mg/dL Aspartate Amino Transferase (AST) 12 L 13-40 U/L Alanine Aminotransferase (ALT) 17 7-40 U/L Alkaline Phosphatase 95 46-116 U/L B-Type Natriuretic Peptide 13.34 0-100 pg/mL Total Protein 7.5 5.7-8.2 g/dL Albumin 4.6 3.2-4.8 g/dL Lipase 31 12-53 U/L Urine Color Light-yellow Yellow Urine Clarity Clear Clear Urine pH 6.0 5.0-9.0 Urine Specific [place] 1.026 1.001-1.035 Urine Protein Trace H Negative Urine Ketones Negative Negative Urine Blood Negative Negative /uL Urine Nitrite Negative Negative Urine Bilirubin Negative Negative Urine Urobilinogen Normal Negative mg/dL Urine Leukocyte Esterase Negative Negative /uL Urine RBC 2 0 - 3 /hpf Urine Microscopic WBC 3 0-3 /HPF Urine Squamous Epithelial Cells Few <5 /hpf Urine Bacteria Few H None Seen /hpf Urine Mucus Few None Seen Urine Sperm Present None Seen /hpf Urine Glucose Normal Normal mg/dL [id number] [facility] [address] Ph: [phone] DIAGNOSTIC IMAGING Diagnostic Imaging Report : [id number] Signed PATIENT: JOSE GREENFIELD ACCT: [id number] UNIT: [id number] : 1985 LOC: ER ROOM / BED: / AGE / SEX: 39 / M ADM STATUS: REG ER SERVICE 48 ORDERING PHYSICIAN: DIONISIO RODRIGUEZ DO PROCEDURE(s): ABPL - CT AB PEL WO CON-NO ORAL OR IV REASON: abd pain ORDER NUMBER(s): [id number], ACCESSION NUMBER(s): [id number] Procedure: CT CT AB PEL WO CON-NO ORAL OR IV 01/17/2025 07:50 PM Indication: abd pain Comparison Study: CT CT AB PEL WO CON-NO ORAL OR IV on DOS: 03/16/24 Technique: Axial images were obtained and reformatted in coronal and sagittal planes. All CT scans at this medical facility are performed using dose modulation techniques as appropriate to a performed exam including the following: Automated exposure control was utilized; adjustment of the MA and/or KV according to patient size; and use of iterative reconstruction technique. CT Dose: CTDI volume is 9.01 mGy. Dose-length product is 513.96 mGy*cm FINDINGS: Lower Chest: Unremarkable. Hepatobiliary: Cholelithiasis with no evidence of cholecystitis. Spleen: Unremarkable. Pancreas: Unremarkable. Adrenal Glands: Unremarkable. tract: The kidneys are normal in size bilaterally without hydronephrosis . A 2 mm nonobstructing stone midpole of the right kidney. The urinary bladder is unremarkable. GI tract: The stomach is grossly normal in appearance. No evidence of small bowel obstruction. The large bowel is unremarkable. Mild fecal retention throughout the large bowel. The appendix is normal. Lymphatics: No mesenteric, retroperitoneal or pelvic lymphadenopathy. Mildly prominent bilateral inguinal lymph nodes are seen measuring up to 2.6 x 1.7 cm Vasculature: The abdominal aorta is normal in in caliber. Pelvic Organs: Unremarkable Bones/soft tissues: No acute abnormality. Moderate-sized fat containing umbilical hernia measuring 1.6 cm at the neck. Mild multilevel degenerative disc disease and posterior facet arthropathy of the lumbar spine noted. Other: None. IMPRESSION: 1. No CT evidence for acute intra-abdominal or intrapelvic process. 2. Moderate fecal retention throughout the large bowel. 3. Mild bilateral inguinal lymphadenopathy likely reactive in nature. Correlate inflammatory/infectious processes in the lower extremities. Follow-up by physical exam or ultrasound is recommended to ensure regression and benignity. 4. Moderate-sized fat containing umbilical hernia. ATED BY: ANA MARÍA CUELLAR MD DICTATED DATE/TIME: 01/17/252014 SIGNED BY: ANA MARÍA CUELLAR MD SIGNED DATE/TIME: 01/17/252014 CC: Time of 1ST Reevaluation: 20:45 Reevaluation 1ST: Unchanged Patient Education/Counseling: Diagnosis, Treatment Family Education/Counseling: No Family Present Comments Patient presented with the above HPI.---umbilical hernia--workup was initiated. patient was found with the above mentioned diagnosis. the following medications were ordered: please refer to order lists of meds and tests obtained by myself Dr. Rodriguez. Patient ED course and VS have been stabilized. Patient has been reassessed in the ED and remained in a stable condition. Pertinent incidental findings were discussed with the patient and/or family. Patient/family voices understanding and is agreeable with plan. Patient has been observed in the ED adequate length of time to insure improvement/stability. Escalation of care considered: Consideration of escalation to observation or admission CT scan shows inguinal lymphadenopathy with possible lower extremity cellulitis. Patient was discharged home with oral antibiotics. Patient denies any fever. No leukocytosis. Patient was DISCHARGED home in a stable condition. All the reports of any imaging studies that were ordered by myself were reviewed by myself. Departure 1 Departure Time of Disposition: 22:14 Impression: Primary Impression: Abdominal hernia Additional Impressions: Constipation Cellulitis of lower extremity Disposition: HOME / SELF CARE / HOMELESS Condition: Stable Additional Instructions: Additional discharge instructions: You MUST follow-up with your primary care/family doctor in 1 to 2 days. If you are unable to see your primary care/family doctor, please return to our emergency room for re-assessment and re-evaluation in 1 to 2 days. Return to the emergency room here in our facility or to the nearest ER [facility] if your symptoms change or worsen. CONSULTATIONS: you MUST Follow-up for consultation as soon as possible with: -general surgery in 1-2 days. Please call for appointment. You MUST call the consultants office yourself to make an appointment. You may need to arrange that through your insurance and/or your primary/family doctor. If you are unable to see the wallpaper consultant in 1 to 2 days, you must return to our emergency room (or any other ER of your choice) for re-assessment and re- evaluation. Adequate fluid hydration. Liquid diet in the next 72 hours. Increase fiber intake. Below is a copy of your radiological report for follow up: [place] [address] Ph: [phone] DIAGNOSTIC IMAGING Diagnostic Imaging Report : [id number] Signed PATIENT: JOSE GREENFIELD ACCT: [id number] UNIT: [id number] : 1985 LOC: ER ROOM / BED: / AGE / SEX: 39 / M ADM STATUS: REG ER SERVICE 48 ORDERING PHYSICIAN: DIONISIO RODRIGUEZ DO PROCEDURE(s): ABPL - CT AB PEL WO CON-NO ORAL OR IV REASON: abd pain ORDER NUMBER(s): [id number], ACCESSION NUMBER(s): [id number] Procedure: CT CT AB PEL WO CON-NO ORAL OR IV 01/17/2025 07:50 PM Indication: abd pain Comparison Study: CT CT AB PEL WO CON-NO ORAL OR IV on DOS: 03/16/24 Technique: Axial images were obtained and reformatted in coronal and sagittal planes. All CT scans at this medical facility are performed using dose modulation techniques as appropriate to a performed exam including the following: Automated exposure control was utilized; adjustment of the MA and/or KV according to patient size; and use of iterative reconstruction technique. CT Dose: CTDI volume is 9.01 mGy. Dose-length product is 513.96 mGy*cm FINDINGS: Lower Chest: Unremarkable. Hepatobiliary: Cholelithiasis with no evidence of cholecystitis. Spleen: Unremarkable. Pancreas: Unremarkable. Adrenal Glands: Unremarkable. tract: The kidneys are normal in size bilaterally without hydronephrosis . A 2 mm nonobstructing stone midpole of the right kidney. The urinary bladder is unremarkable. GI tract: The stomach is grossly normal in appearance. No evidence of small bowel obstruction. The large bowel is unremarkable. Mild fecal retention throughout the large bowel. The appendix is normal. Lymphatics: No mesenteric, retroperitoneal or pelvic lymphadenopathy. Mildly prominent bilateral inguinal lymph nodes are seen measuring up to 2.6 x 1.7 cm Vasculature: The abdominal aorta is normal in in caliber. Pelvic Organs: Unremarkable Bones/soft tissues: No acute abnormality. Moderate-sized fat containing umbilical hernia measuring 1.6 cm at the neck. Mild multilevel degenerative disc disease and posterior facet arthropathy of the lumbar spine noted. Other: None. IMPRESSION: 1. No CT evidence for acute intra-abdominal or intrapelvic process. 2. Moderate fecal retention throughout the large bowel. 3. Mild bilateral inguinal lymphadenopathy likely reactive in nature. Correlate inflammatory/infectious processes in the lower extremities. Follow-up by physical exam or ultrasound is recommended to ensure regression and benignity. 4. Moderate-sized fat containing umbilical hernia. ATED BY: ANA MARÍA CUELLAR MD DICTATED DATE/TIME: 01/17/252014 SIGNED BY: ANA MARÍA CUELLAR MD SIGNED DATE/TIME: 01/17/252014 CC: e-Prescriptions Cephalexin Monohydrate (Cephalexin) 500 Mg Cap 500 MG PO Q6HR for 7 Days, #28 CAP Prov: DIONISIO RODRIGUEZ DO 01/17/25 Discharged With: Self Critical Care Note Critical Care Time?: No I personally scribed for DIONISIO RODRIGUEZ DO ([email or web address]) on 01/17/25 at 20:19. Electronically submitted by Sandra Maria ([email or web address]). I personally scribed for DIONISIO RODRIGUEZ DO ([email or web address]) on 01/17/25 at 20:26. Electronically submitted by Sandra Maria ([email or web address]). DIONISIO RODRIGUEZ DO Jan 17, 2025 20:19
[2025-01-17 20:29] LABS: Basophils # (auto) 0 10 ^3/uL (0-0.2); Basophils % (auto) 0.7 % (0.0-2.0); Eosinophils # (auto) 0.1 10 ^3/uL (0-0.8); Eosinophils % (auto) 2.7 % (0.0-7.0); Hematocrit 41.4 % (41.0-53.0); Hemoglobin 13.7 g/dL (13.5-17.5); Lymphocytes # (auto) 1.1 10 ^3/uL (0.4-5.4); Mean Corpuscular Hemoglobin 29.8 pg (28.0-32.0); Mean Corpuscular Hgb Conc. 33.1 g/dL (32.0-36.0); Monocytes # (auto) 0.3 10 ^3/uL (0-1.3); Monocytes % (auto) 8.2 % (0.0-12.0); Neutrophils # (auto) 2.5 10 ^3/uL (1.6-8.6); Neutrophils % (auto) 61.4 % (37.0-80.0); Nucleated Red Blood Cells % 0.1 %; Platelet Count (auto) 145 10^3/uL (140-450); White Blood Cell 4.1 10^3/uL (4.4-10.8)
[2025-01-17 20:48] LABS: Urine Bacteria FEW /hpf (None Seen); Urine Blood Negative /uL (Negative); Urine Clarity Clear (Clear); Urine Color Light-Yellow (Yellow); Urine Mucus FEW (None Seen); Urine Protein, UAD TRACE (Negative); Urine Specific Gravity 1.026 (1.001-1.035); Urine Sperm PRESENT /hpf (None Seen); Urine Squamous Epithelial Cell FEW /hpf (<5); Urine Urobilinogen Normal (Negative); Urine WBC 3 /HPF (0-3)
[2025-01-17 20:53] LABS: Alanine Aminotransferase 17 U/L (7-40); Albumin 4.6 g/dL (3.2-4.8); Alkaline Phosphatase 95 U/L (46-116); Anion Gap 7 (5-15); BUN/Creatinine Ratio 15.6 (10.0-20.0); Bilirubin, Total 0.3 mg/dL (0.2-1.0); Blood Urea Nitrogen 15 mg/dL (9-23); Calcium 9.9 mg/dL (8.7-10.4); Carbon Dioxide 28 mmol/L (20-31); Chloride 106 mmol/L (98-107); Lipase 31 U/L (12-53); Potassium 4.2 mmol/L (3.5-5.1); Sodium 141 mmol/L (136-145); Total Protein 7.5 g/dL (5.7-8.2)
[2025-01-17 21:11] LABS: Aspartate Aminotransferase 12 U/L (13-40); Glucose 108 mg/dL (74-106)
[2025-01-17] MEDS ORDERED: CEPH500C PO (22:13)
[2025-01-18 00:22] VITALS: BP 122/79; PULSE 82; RESP 20; TEMP 97.9; O2SAT 98
== END 2025-01-18 00:32 | disposition home or self-care (01) ==
LOC: ER 19:38
DX: K42.9 Umbilical hernia without obstruction or gangrene (principal); K59.00 Constipation, unspecified; L03.119 Cellulitis of unspecified part of limb; F20.9 Schizophrenia, unspecified; F32.9 Major depressive disorder, single episode, unspecified; F15.90 Other stimulant use, unspecified, uncomplicated; Z79.899 Other long term (current) drug therapy
CPT/HCPCS: 36415; 74176; 80053; 81001; 83605; 83690; 83880; 85025

== ENCOUNTER 2025-01-30 17:52 | Emergency (ER) | payer MEDICARE, MEDICAID ==
[~2025-01-30] VITALS: Ht 180.3 cm; Wt 92.1 kg
[2025-01-30] MEDS ORDERED: BACDST PO (18:47)
[2025-01-30] MEDS ORDERED: PER60TP TOP (18:47)
--- NOTE | 2025-01-30 18:48 | ED.PDOC ---
History of Present Illness(SKN HPI Comments 39-year-old male complaining of rash all over his body. States he has been going on for weeks, says he was seen different providers. Nothing makes it better, nothing makes it worse. Does report history of fentanyl and methamphetamine use. States he was scratches skin and see small insects crawling out of the skin. Chief Complaint: Rash Time Seen by MD: 18:14 Primary Care Provider: NONE History of Present Illness: Nurses Notes Allergies: Coded Allergies: NO KNOWN ALLERGIES (Unverified , 10/19/22) Home Meds Active Scripts Cephalexin Monohydrate (Cephalexin) 500 Mg Cap, 500 MG PO Q6HR for 7 Days, #28 CAP Prov:DIONISIO RODRIGUEZ DO 01/17/25 Ibuprofen Micronized (Ibuprofen) 800 Mg Tab, 800 MG PO Q8HP PRN, #20 TAB Prov:GEGE HOUSTON PAC 12/17/24 Sulfamethoxazole W/Trimethopri (Bactrim Ds Tablet) 1 Tab Tb, 1 TAB PO BID for 7 Days, #14 TAB Prov:GEGE HOUSTON PAC 12/17/24 Permethrin (Elimite) 5 % Cre, 7 APPLIC TOP ONCE, #60 GRAMS 1 Refill Prov:NANCY CARRANZA PAC 06/17/24 Cephalexin Monohydrate (Cephalexin) 500 Mg Cap, 1 CAP PO QID, #40 CAP Prov:CARLOS DE PAZ PA 05/25/24 Triamcinolone Acetonide (Triamcinolone Acetonide) 0.1 % Oin, 1 APPLIC TOP BID, #30 GRAMS Prov:CARLOS DE PAZ PA 05/25/24 Mupirocin (Pseudomonas Fluores (Mupirocin) 2 % Oin, 1 APPLIC TOP TID for 10 Days, #15 MG Prov:JOHN SMITH OBIEE REPORT DEVELOPER 01/25/24 Cephalexin Monohydrate (Cephalexin) 500 Mg Cap, 1 CAP PO QID for 10 Days, #40 CAP Prov:JOHN SMITH OBIEE REPORT DEVELOPER 01/25/24 Mupirocin (Pseudomonas Fluores (Mupirocin) 2 % Oin, 1 APPLIC EX TID for 10 Days, #15 MG Prov:RAMBO MOLINA HIDE SALTER 12/31/23 Cephalexin Monohydrate (Cephalexin) 500 Mg Cap, 1 CAP PO QID for 10 Days, #40 CAP Prov:RAMBO MOLINA Q HIDE SALTER 12/31/23 Diphenhydramine Hcl (Benadryl Allergy) 25 Mg Cap, 1 CAP PO Q6HPRN PRN, #30 CAP 0 Refills Take 1-2 caps PO every 6 hours as needed for itchiness. Max: 12 caps/24 hours Prov:COLLINS ROBERSON OBIEE REPORT DEVELOPER 03/16/23 Hydrocortone (Hydrocortisone 1%) 1 Applic Ap, 1 APPLIC TOP BID for 7 Days, #30 GRAMS 0 Refills Prov:COLLINS ROBERSON OBIEE REPORT DEVELOPER 03/16/23 Cephalexin ( Keflex 500) 500 Mg Cap, 1 CAP PO QID for 12 Days, #48 CAP Prov:JAQUELINE MONTOYA MD 11/12/22 Sulfamethoxazole W/Trimethopri (Bactrim Ds Tablet) 1 Tab Tb, 1 TAB PO BID for 12 Days, #24 TAB Prov:JAQUELINE MONTOYA MD 11/12/22 Mupirocin Calcium (Topical) (MUPIROCIN) 2 % Cre, 2 % EX BID for 5 Days, #1 CRE 1 application each nostril twice a day for 5 days Prov:ASMITA DENNY MD 09/11/21 Doxycycline Hyclate (DOXYCYCLINE HYCLATE) 100 Mg Tab, 1 TAB PO BID, #20 TAB Prov:ASMITA DENNY MD 09/11/21 Reported Medications [Methadone] No Conflict Check, 50 MG PO 11/27/11 Information Source: Patient Mode of Arrival: Ambulatory Past Medical History PAST MEDICAL HISTORY: Depression, Schizophrenia Surgical History: Denies all surgeries Family History Family History: Reviewed,noncontributory to illness Social History Smoker: Non-Smoker Alcohol: Denies ETOH Use Drugs: Methamphetamine Lives In: Home Constitutional: denies: chills, diaphoresis, fatigue, fever, malaise, sweats, weakness, others EENTM: denies: blurred vision, double vision, ear bleeding, ear discharge, ear drainage, ear pain, ear ringing, eye pain, eye redness, hearing loss, mouth pain, mouth swelling, nasal discharge, nose bleeding, nose congestion, nose pain, photophobia, tearing, throat pain, throat swelling, voice changes, others Respiratory: denies: cough, hemoptysis, orthopnea, SOB at rest, shortness of breath, SOB with excertion, stridor, wheezing, others Cardiovascular: denies: chest pain, dizzy spells, diaphoresis, Dyspnea on exertion, edema, irregular heart beat, left arm pain, lightheadedness, palpitations, PND, syncope, others Gastrointestinal: denies: abdomen distended, abdominal pain, blood streaked bowels, constipated, diarrhea, dysphagia, difficulty swallowing, hematemesis, melena, nausea, poor appetite, poor fluid intake, rectal bleeding, rectal pain, vomiting, others Genitourinary: denies: burning, dysuria, flank pain, frequency, hematuria, incontinence, penile discharge, penile sore, pain, testicle pain, testicle swelling, urgency, others Neurological: denies: dizziness, fainting, headache, left sided numbness, left sided weakness, numbness, paresthesia, pre-existing deficit, right sided numbness, right sided weakness, seizure, speech problems, tingling, tremors, weakness, others Musculoskeletal: denies: back pain, gout, joint pain, joint swelling, muscle p ain, muscle stiffness, neck pain, others Integumetry: reports: rash, wounds; denies: bruises, change in color, change in hair/nails, dryness, laceration, lesions, lumps, others Allergic/Immunocompromised: denies: Difficulty Healing, Frequent Infections, Hives, Itching, others Hematologic/Lymphatic: denies: anemia, blood clots, easy bleeding, easy bruising, swollen glands, others Endocrine: denies: excessive hunger, excessive sweating, excessive thirst, excessive urination, flushing, intolerance to cold, intolerance to heat, unexplained weight gain, unexplained weight loss, others Psychiatric: reports: anxiety Physical Exam General Appearance: No Apparent Distress, Normal HEENT: Normal ENT Inspection, Pharynx Normal, TMs Normal Neck: Full Range of Motion, Non-Tender, Normal, Normal Inspection Respiratory: Chest Non-Tender, Lungs Clear, No Accessory Muscle Use, No Resp iratory Distress, Normal Breath Sounds Cardiovascular: No Edema, No JVD, No Murmur, No Gallop, Normal Peripheral Pulses, Regular Rate/Rhythm Breast Exam: Deferred Gastrointestinal: No Organomegaly, Non Tender, No Pulsatile Mass, Normal Bowel Sounds, Soft Genitalia: Deferred Pelvic: Deferred Rectal: Deferred Extremities: No calf tenderness, Normal capillary refill, Normal inspection, Normal range of motion, Non-tender, No pedal edema Musculoskeletal : Apperance: Normal Neurologic: Alert, feller seam operator II-XII nml as Tested, No Motor Deficits, Normal Affect, Normal Mood, No Sensory Deficits Cerebellar Function: Normal Reflexes: Normal Skin: Dry, Normal Color, Rash (Dry excoriated rash noted all over body. Predominantly on his scalp bilateral hands and bilateral feet.), Warm Lymphatic: No Adenopathy Was a procedure done? Was a procedure done?: No Differential Diagnosis (INTG) Differential Diagnosis: Cellulitis, Contusion, Hematoma, Insect Envenomation, Laceration Differential Diagnosis: Abscess X-Ray, Labs, Meds, VS Vital Signs Date Time Temp Pulse Resp B/P (MAP) Pulse Ox O2 Delivery O2 Flow Rate FiO2 01/30/25 18:20 97.0 97 22 115/97 (103) 100 X-Ray, Labs, Meds, VS Comment Imaging: X-rays and CT scans were reviewed and interpreted by this provider, imaging shows no fractures and no pathological disease. Pending radiology re view. Laboratory: Labs reviewed and interpreted by this provider. No significant abnormalities noted. Patient has prior medical visits reviewed. Med reconciliation performed Vital signs reviewed Time of 1ST Reevaluation: 18:47 Reevaluation 1ST: Improved Patient Education/Counseling: Diagnosis, Treatment, Need For Follow Up (Patient advised to follow-up in the emergency room in the next 24 to 48 hours if symptoms do not improve. Advised follow-up with PCP in the next 3 to 5 days. Patient verbalized understanding. ) Family Education/Counseling: Diagnosis Departure 1 Departure Time of Disposition: 18:46 Impression: Primary Impression: Methamphetamine abuse Additional Impressions: Swelling of lower leg Skin irritation Disposition: HOME / SELF CARE / HOMELESS Condition: Fair e-Prescriptions Sulfamethoxazole W/Trimethopri (Bactrim Ds Tablet) 1 Tab Tb 1 TAB PO BID for 7 Days, #14 TAB Prov: JOHN SMITH 01/30/25 Permethrin (Elimite) 5 % Cre 1 APPLIC TOP ONCE, #60 GRAMS 1 Refill Prov: JOHN SMITH 01/30/25 Discharged With: Self Critical Care Note Critical Care Time?: No Stability Stability form required: No Heart Score Heart Score: Heart Score Response (Comments) Value History N/A 0 EKG N/A 0 Age N/A 0 Risk Factors N/A 0 Troponin N/A 0 Total 0 JOHN SMITH Jan 30, 2025 18:48
[2025-01-30 19:17] VITALS: BP 123/76; TEMP 98.3
[2025-01-30 19:20] VITALS: PULSE 91; RESP 19; O2SAT 100
== END 2025-01-30 19:21 | disposition home or self-care (01) ==
LOC: ER 18:01
DX: F15.10 Other stimulant abuse, uncomplicated (principal); M79.89 Other specified soft tissue disorders; F32.A Depression, unspecified; F20.9 Schizophrenia, unspecified

== ENCOUNTER 2025-02-10 21:21 | Emergency (ER) | payer MEDICARE, MEDICAID ==
[~2025-02-10] VITALS: Ht 180.3 cm; Wt 93.6 kg
[2025-02-10] MEDS ORDERED: CEPH250C PO (21:46)
--- NOTE | 2025-02-10 21:46 | ED.PDOC ---
History of Present Illness(SKN HPI Comments This patient is a 39-year-old male who appears to be intoxicated with a illicit drugs who arrives the ED today for re-evaluation of what appears to be lice or scabies infestation. Patient has been seen this facility for the same condition and was sent home with Elimite medication. Patient arrives stating that the medications too expensive and does not know what to do. I advised the patient that that is the medication to use for his condition. I advised that I will send the patient home with some antibiotics to stave off what appears to be some current skin infection concerns on his scalp. Time Seen by MD: 21:25 Primary Care Provider: NONE History of Present Illness: Processor Helper Notes Allergies: Coded Allergies: NO KNOWN ALLERGIES (Unverified , 10/19/22) Home Meds Active Scripts Sulfamethoxazole W/Trimethopri (Bactrim Ds Tablet) 1 Tab Tb, 1 TAB PO BID for 7 Days, #14 TAB Prov:JOHN SMITHP 01/30/25 Permethrin (Elimite) 5 % Cre, 1 APPLIC TOP ONCE, #60 GRAMS 1 Refill Prov:JOHN SMITHP 01/30/25 Cephalexin Monohydrate (Cephalexin) 500 Mg Cap, 500 MG PO Q6HR for 7 Days, #28 CAP Prov:DIONISIO RODRIGUEZ DO 01/17/25 Ibuprofen Micronized (Ibuprofen) 800 Mg Tab, 800 MG PO Q8HP PRN, #20 TAB Prov:GEGE HOUSTON PAC 12/17/24 Sulfamethoxazole W/Trimethopri (Bactrim Ds Tablet) 1 Tab Tb, 1 TAB PO BID for 7 Days, #14 TAB Prov:GEGE HOUSTON PAC 12/17/24 Permethrin (Elimite) 5 % Cre, 7 APPLIC TOP ONCE, #60 GRAMS 1 Refill Prov:NANCY CARRANZA PAC 06/17/24 Cephalexin Monohydrate (Cephalexin) 500 Mg Cap, 1 CAP PO QID, #40 CAP Prov:CARLOS DE PAZ 05/25/24 Triamcinolone Acetonide (Triamcinolone Acetonide) 0.1 % Oin, 1 APPLIC TOP BID, #30 GRAMS Prov:CALROS DE PAZ 05/25/24 Mupirocin (Pseudomonas Fluores (Mupirocin) 2 % Oin, 1 APPLIC TOP TID for 10 Days, #15 MG Prov:JOHN SMITH SHOPPING INVESTIGATOR 01/25/24 Cephalexin Monohydrate (Cephalexin) 500 Mg Cap, 1 CAP PO QID for 10 Days, #40 CAP Prov:JOHN SMITH SHOPPING INVESTIGATOR 01/25/24 Mupirocin (Pseudomonas Fluores (Mupirocin) 2 % Oin, 1 APPLIC EX TID for 10 Days, #15 MG Prov:MOLINA,NORALDA Q KNOBBER 12/31/23 Cephalexin Monohydrate (Cephalexin) 500 Mg Cap, 1 CAP PO QID for 10 Days, #40 CAP Prov:MOLINA,NORALDA Q KNOBBER 12/31/23 Diphenhydramine Hcl (Benadryl Allergy) 25 Mg Cap, 1 CAP PO Q6HPRN PRN, #30 CAP 0 Refills Take 1-2 caps PO every 6 hours as needed for itchiness. Max: 12 caps/24 hours Prov:COLLINS ROBERSON SHOPPING INVESTIGATOR 03/16/23 Hydrocortone (Hydrocortisone 1%) 1 Applic Ap, 1 APPLIC TOP BID for 7 Days, #30 GRAMS 0 Refills Prov:COLLINS ROBERSON SHOPPING INVESTIGATOR 03/16/23 Cephalexin ( Keflex 500) 500 Mg Cap, 1 CAP PO QID for 12 Days, #48 CAP Prov:JAQUELINE MONTOYA MD 11/12/22 Sulfamethoxazole W/Trimethopri (Bactrim Ds Tablet) 1 Tab Tb, 1 TAB PO BID for 12 Days, #24 TAB Prov:JAQUELINE MONTOYA MD 11/12/22 Mupirocin Calcium (Topical) (MUPIROCIN) 2 % Cre, 2 % EX BID for 5 Days, #1 CRE 1 application each nostril twice a day for 5 days Prov:ASMITA DENNY MD 09/11/21 Doxycycline Hyclate (DOXYCYCLINE HYCLATE) 100 Mg Tab, 1 TAB PO BID, #20 TAB Prov:ASMITA DENNY MD 09/11/21 Reported Medications [Methadone] No Conflict Check, 50 MG PO 11/27/11 Information Source: Patient Mode of Arrival: Ambulatory Severity: Moderate Timing: Weeks Duration: Since onset Prehospital treatment: None Location: Head Mechanism: Spontaneous Onset Tetanus: UTD Associated Signs and Symptoms: Redness Past Medical History PAST MEDICAL HISTORY: Depression, Schizophrenia Surgical History: Denies all surgeries Family History Family History: Reviewed,noncontributory to illness Social History Smoker: Non-Smoker Alcohol: Denies ETOH Use Drugs: Methamphetamine Lives In: Home Constitutional: denies: chills, diaphoresis, fatigue, fever, malaise, sweats, weakness, others EENTM: denies: blurred vision, double vision, ear bleeding, ear discharge, ear drainage, ear pain, ear ringing, eye pain, eye redness, hearing loss, mouth pain, mouth swelling, nasal discharge, nose bleeding, nose congestion, nose pain, photophobia, tearing, throat pain, throat swelling, voice changes, others Respiratory: denies: cough, hemoptysis, orthopnea, SOB at rest, shortness of breath, SOB with excertion, stridor, wheezing, others Cardiovascular: denies: chest pain, dizzy spells, diaphoresis, Dyspnea on exertion, edema, irregular heart beat, left arm pain, lightheadedness, palpitations, PND, syncope, others Gastrointestinal: denies: abdomen distended, abdominal pain, blood streaked bowels, constipated, diarrhea, dysphagia, difficulty swallowing, hematemesis, melena, nausea, poor appetite, poor fluid intake, rectal bleeding, rectal pain, vomiting, others Genitourinary: denies: burning, dysuria, flank pain, frequency, hematuria, incontinence, penile discharge, penile sore, pain, testicle pain, testicle swelling, urgency, others Neurological: denies: dizziness, fainting, headache, left sided numbness, left sided weakness, numbness, paresthesia, pre-existing deficit, right sided numbness, right sided weakness, seizure, speech problems, tingling, tremors, weakness, others Musculoskeletal: denies: back pain, gout, joint pain, joint swelling, muscle pain, muscle stiffness, neck pain, others Integumetry: reports: wounds (Wounds due to lice or scabies infestation); denies: bruises, change in color, change in hair/nails, dryness, laceration, lesions, lumps, rash, others Allergic/Immunocompromised: denies: Difficulty Healing, Frequent Infections, Hives, Itching, others Hematologic/Lymphatic: denies: anemia, blood clots, easy bleeding, easy bruising, swollen glands, others Endocrine: denies: excessive hunger, excessive sweating, excessive thirst, excessive urination, flushing, intolerance to cold, intolerance to heat, unexplained weight gain, unexplained weight loss, others Psychiatric: denies: anxiety, bipolar disorder, depression, hopeless, panic disorder, schizophrenia, sleepless, suicidal, others Physical Exam General Appearance: Mild Distress ( moderate distress due to scalp wounds. Patient appears to be on methamphetamine.), Normal HEENT: Normal ENT Inspection, Pharynx Normal, TMs Normal Neck: Full Range of Motion, Non-Tender, Normal, Normal Inspection Respiratory: Chest Non-Tender, Lungs Clear, No Accessory Muscle Use, No Respiratory Distress, Normal Breath Sounds Cardiovascular: No Edema, No JVD, No Murmur, No Gallop, Normal Peripheral Pulses, Regular Rate/Rhythm Breast Exam: Deferred Gastrointestinal: No Organomegaly, Non Tender, No Pulsatile Mass, Normal Bowel Sounds, Soft Genitalia: Deferred Pelvic: Deferred Rectal: Deferred Extremities: No calf tenderness, Normal capillary refill, Normal inspection, Normal range of motion, Non-tender, No pedal edema Neurologic: Alert, No Motor Deficits, No Sensory Deficits Cerebellar Function: Normal Reflexes: Normal Skin: Dry, Normal Color, Warm, Wounds ( Patient displays multiple excoriations on throughout his scalp. Localized erythema and edema with some weeping wounds.) Lymphatic: No Adenopathy Was a procedure done? Was a procedure done?: No Differential Diagnosis (INTG) Differential Diagnosis: Cellulitis, Other ( Lice infestation, scabies) X-Ray, Labs, Meds, VS Comment Advised patient that without the medication, his conditions will continued. I will send the patient home with some antibiotics to stave off any infective components. Time of 1ST Reevaluation: 21:44 Reevaluation 1ST: Unchanged Consultation: PCP Patient Education/Counseling: Diagnosis, Treatment Family Education/Counseling: Diagnosis, Treatment Departure 1 Departure Time of Disposition: 21:45 Impression: Primary Impression: Skin infection Disposition: HOME / SELF CARE / HOMELESS Condition: Stable Additional Instructions: Advised patient utilize medication as directed until completion. e-Prescriptions Cephalexin (KEFLEX CAPSULE) 250 Mg Cp 1 CAP PO QID, #40 CAP Prov: GEGE HOUSTON PAC 02/10/25 Discharged With: Self Critical Care Note Critical Care Time?: No Stability Stability form required: No Heart Score Heart Score: Heart Score Response (Comments) Value History N/A 0 EKG N/A 0 Age N/A 0 Risk Factors N/A 0 Troponin N/A 0 Total 0 GEGE HOUSTON [facility] Feb 10, 2025 21:46
[2025-02-10 22:20] VITALS: BP 166/136; PULSE 94; RESP 16; TEMP 97.6; O2SAT 95
== END 2025-02-10 23:30 | disposition home or self-care (01) ==
LOC: ER 21:21
DX: L08.9 Local infection of the skin and subcutaneous tissue, unspecified (principal); F20.9 Schizophrenia, unspecified; F15.90 Other stimulant use, unspecified, uncomplicated; F32.A Depression, unspecified; Z79.899 Other long term (current) drug therapy

== ENCOUNTER 2025-08-25 13:18 | Emergency (ER) | payer MEDICARE, MEDICAID ==
[~2025-08-25] VITALS: Ht 180.3 cm; Wt 84.2 kg
[~2025-08-25 13:18] MED LIST changes: +CEPH250C PO
[2025-08-25 13:21] VITALS: BP 146/105; PULSE 108; RESP 18; TEMP 97.8; O2SAT 97
--- NOTE | 2025-08-25 14:12 | ED.PDOC ---
Musculoskeletal HPI Comments Phuc Milian is a 40-year-old female with past medical history of umbilical hernia, schizophrenia, depression and polysubstance abuse. The patient came to the ED with chief complain of 2 years of multiple skin lesions and skin ulcers, that wean and wane over the time forming a crust, associated with pruritus, warmth and erythema. The patient believes they are cause by "white fleas" and he has been removed the crust because he does not wants the "fleas" stayed at his body. The patient is a poor historian and speaks without context. The patient denies fever, chills, diarrhea, chest pain, palpitations or other symptoms. On the ED: BP 146/105mmHg, HR: 108. The patient is agitated and defensive. Attestation note: Dr. Rodriguez: I was the supervising attending for this ED encounter. Please see the resident's notes. I was available for questions and consultations. Differential diagnosis: Leg swelling Ddx include but not limited to DVT, ischemic limb, pitting edema, volume overload, CHF, cellulitis, hematoma, compartment syndrome, dependent edema, venous stasis. Necrotizing fasciitis, abscess, infestation. MDM: MDM: patient presented with the above HPI.---lower extremity wounds---workup was initiated. patient was found with the above mentioned diagnosis. the following medications were ordered: please refer to order lists of meds and tests obtained by myself Dr. Rodriguez. Patient ED course and VS have been stabilized. Patient has been reassessed in the ED and remained in a stable condition. Patient has been observed in the ED adequate length of time to insure improvement/stability. Escalation of care considered: Consideration of escalation to observation or admission Patient was going to be ADMITTED to the medicine team for further evaluation and treatment of their presentation. However patient left against medical advice. All the reports of any imaging studies that were ordered by myself were reviewed by myself. Chief Complaint: Lower Extremity Time Seen by MD: 13:33 Primary Care Provider: NONE Reviewed Notes: Nurses Notes, Medications, Allergies Allergies: Coded Allergies: NO KNOWN ALLERGIES (Unverified , 10/19/22) Home Meds Active Scripts Cephalexin (KEFLEX CAPSULE) 250 Mg Cp, 1 CAP PO QID, #40 CAP Prov:GEGE HOUSTON PAC 02/10/25 Sulfamethoxazole W/Trimethopri (Bactrim Ds Tablet) 1 Tab Tb, 1 TAB PO BID for 7 Days, #14 TAB Prov:JOHN SMITHP 01/30/25 Permethrin (Elimite) 5 % Cre, 1 APPLIC TOP ONCE, #60 GRAMS 1 Refill Prov:JOHN SMITHP 01/30/25 Cephalexin Monohydrate (Cephalexin) 500 Mg Cap, 500 MG PO Q6HR for 7 Days, #28 CAP Prov:DIONISIO RODRIGUEZ DO 01/17/25 Ibuprofen Micronized (Ibuprofen) 800 Mg Tab, 800 MG PO Q8HP PRN, #20 TAB Prov:ROSEMARIE,GEGE Ivy PAC 12/17/24 Sulfamethoxazole W/Trimethopri (Bactrim Ds Tablet) 1 Tab Tb, 1 TAB PO BID for 7 Days, #14 TAB Prov:ROSEMARIEGEGE Ivy [facility] 12/17/24 Permethrin (Elimite) 5 % Cre, 7 APPLIC TOP ONCE, #60 GRAMS 1 Refill Prov:NANCY CARRANZA PAC 06/17/24 Cephalexin Monohydrate (Cephalexin) 500 Mg Cap, 1 CAP PO QID, #40 CAP Prov:CARLOS DE PAZ PA 05/25/24 Triamcinolone Acetonide (Triamcinolone Acetonide) 0.1 % Oin, 1 APPLIC TOP BID, #30 GRAMS Prov:CARLOS DE PAZ PA 05/25/24 Mupirocin (Pseudomonas Fluores (Mupirocin) 2 % Oin, 1 APPLIC TOP TID for 10 Days, #15 MG Prov:JOHN SMITH THREADING MACHINE SETTER 01/25/24 Cephalexin Monohydrate (Cephalexin) 500 Mg Cap, 1 CAP PO QID for 10 Days, #40 CAP Prov:JOHN SMITH THREADING MACHINE SETTER 01/25/24 Mupirocin (Pseudomonas Fluores (Mupirocin) 2 % Oin, 1 APPLIC EX TID for 10 Days, #15 MG Prov:MOLINA,NORALDA Q INCIDENT RESPONSE ENGINEER 12/31/23 Cephalexin Monohydrate (Cephalexin) 500 Mg Cap, 1 CAP PO QID for 10 Days, #40 CAP Prov:MOLINA,NORALDA Q INCIDENT RESPONSE ENGINEER 12/31/23 Diphenhydramine Hcl (Benadryl Allergy) 25 Mg Cap, 1 CAP PO Q6HPRN PRN, #30 CAP 0 Refills Take 1-2 caps PO every 6 hours as needed for itchiness. Max: 12 caps/24 hours Prov:COLLINS ROBERSON THREADING MACHINE SETTER 03/16/23 Hydrocortone (Hydrocortisone 1%) 1 Applic Ap, 1 APPLIC TOP BID for 7 Days, #30 GRAMS 0 Refills Prov:COLLINS ROBERSON THREADING MACHINE SETTER 03/16/23 Cephalexin ( Keflex 500) 500 Mg Cap, 1 CAP PO QID for 12 Days, #48 CAP Prov:JAQUELINE MONTOYA MD 11/12/22 Sulfamethoxazole W/Trimethopri (Bactrim Ds Tablet) 1 Tab Tb, 1 TAB PO BID for 12 Days, #24 TAB Prov:JAQUELINE MONTOYA MD 11/12/22 Mupirocin Calcium (Topical) (MUPIROCIN) 2 % Cre, 2 % EX BID for 5 Days, #1 CRE 1 application each nostril twice a day for 5 days Prov:ASMITA DENNY MD 09/11/21 Doxycycline Hyclate (DOXYCYCLINE HYCLATE) 100 Mg Tab, 1 TAB PO BID, #20 TAB Prov:ASMITA DENNY MD 09/11/21 Reported Medications [Methadone] No Conflict Check, 50 MG PO 11/27/11 Information Source: Patient Mode of Arrival: Ambulatory Location: Bilateral Past Medical History PAST MEDICAL HISTORY: Depression, Schizophrenia Past Medical History (Other): Umbilical herinia Surgical History: Denies all surgeries Family History Family History: Reviewed,noncontributory to illness Social History Smoker: Non-Smoker Alcohol: Denies ETOH Use Drugs: Cocaine, Marijuana, Methamphetamine Lives In: Homeless Constitutional: denies: chills, diaphoresis, fatigue, fever, malaise, sweats, weakness, others EENTM: denies: blurred vision, double vision, ear bleeding, ear discharge, ear drainage, ear pain, ear ringing, eye pain, eye redness, hearing loss, mouth pain, mouth swelling, nasal discharge, nose bleeding, nose congestion, nose pain, photophobia, tearing, throat pain, throat swelling, voice changes, others Respiratory: denies: cough, hemoptysis, orthopnea, SOB at rest, shortness of breath, SOB with excertion, stridor, wheezing, others Cardiovascular: denies: chest pain, dizzy spells, diaphoresis, Dyspnea on exertion, edema, irregular heart beat, left arm pain, lightheadedness, palpitations, PND, syncope, others Gastrointestinal: denies: abdomen distended, abdominal pain, blood streaked bowels, constipated, diarrhea, dysphagia, difficulty swallowing, hematemesis, melena, nausea, poor appetite, poor fluid intake, rectal bleeding, rectal pain, vomiting, others Genitourinary: denies: burning, dysuria, flank pain, frequency, hematuria, incontinence, penile discharge, penile sore, pain, testicle pain, testicle swelling, urgency, others Neurological: denies: dizziness, fainting, headache, left sided numbness, left sided weakness, numbness, paresthesia, pre-existing deficit, right sided numbness, right sided weakness, seizure, speech problems, tingling, tremors, weakness, others Musculoskeletal: denies: back pain, gout, joint pain, joint swelling, muscle pain, muscle stiffness, neck pain, others Integumetry: reports: dryness, laceration, lesions, rash, wounds; denies: bruises, change in color, change in hair/nails, lumps, others Allergic/Immunocompromised: reports: Difficulty Healing; denies: Frequent Infections, Hives, Itching, others Hematologic/Lymphatic: denies: anemia, blood clots, easy bleeding, easy bruising, swollen glands, others Endocrine: denies: excessive hunger, excessive sweating, excessive thirst, excessive urination, flushing, intolerance to cold, intolerance to heat, unexplained weight gain, unexplained weight loss, others Psychiatric: denies: anxiety, bipolar disorder, depression, hopeless, panic disorder, schizophrenia, sleepless, suicidal, others Physical Exam Exam Comments Disheveled, defensive and agitated, looks like he is under the influence. General Appearance: No Apparent Distress, Normal HEENT: Normal ENT Inspection, Pharynx Normal, TMs Normal Neck: Full Range of Motion, Non-Tender, Normal, Normal Inspection Respiratory: Chest Non-Tender, Lungs Clear, No Accessory Muscle Use, No Respiratory Distress, Normal Breath Sounds Cardiovascular: No Edema, No JVD, No Murmur, No Gallop, Normal Peripheral Pulses, Regular Rate/Rhythm Breast Exam: Deferred Gastrointestinal: No Organomegaly, Non Tender, No Pulsatile Mass, Normal Bowel Sounds, Soft Genitalia: Deferred Pelvic: Deferred Rectal: Deferred Extremities: No calf tenderness, No pedal edema Musculoskeletal : Apperance: Normal Neurologic: Alert, senior devops engineer II-XII nml as Tested, No Motor Deficits, No Sensory Deficits, Other (Patient confabulates, delutions are present. ) Cerebellar Function: Normal Reflexes: Normal Skin: Dry, Lacerations (Upper extremities: There are multiples dry ulcer withs crusts in his ands. Lower extremities: multiples dry and wet ulcers on his legs. ), Warm Lymphatic: No Adenopathy Was a procedure done? Was a procedure done?: No Differential Diagnosis EXT Differential Diagnosis: Cellulitis, Deep Vein Thrombosis X-Ray, Labs, Meds, VS Vital Signs Date Time Temp Pulse Resp B/P (MAP) Pulse Ox O2 Delivery O2 Flow Rate FiO2 08/25/25 13:21 97.8 108 18 146/105 97 97.8 Lab Test 08/25/25 14:00 Range/Units White Blood Count 6.1 4.4-10.8 10^3/uL Red Blood Count 4.26 L 4.5-5.90 10^6/uL Hemoglobin 12.7 L 13.5-17.5 g/dL Hematocrit 37.2 L 41.0-53.0 % Mean Corpuscular Volume 87.3 80.0-100.0 fL Mean Corpuscular Hemoglobin 29.8 28.0-32.0 pg Mean Corpuscular Hemoglobin Concent 34.1 32.0-36.0 g/dL Red Cell Distribution Width 12.5 11.8-14.3 % Platelet Count 191 140-450 10^3/uL Mean Platelet Volume 9.7 6.9-10.8 fL Neutrophils (%) (Auto) 70.8 37.0-80.0 % Lymphocytes (%) (Auto) 20.8 10.0-50.0 % Monocytes (%) (Auto) 6.4 0.0-12.0 % Eosinophils (%) (Auto) 1.7 0.0-7.0 % Basophils (%) (Auto) 0.3 0.0-2.0 % Neutrophils # (Auto) 4.3 1.6-8.6 10 ^3/uL Lymphocytes # (Auto) 1.3 0.4-5.4 10 ^3/uL Monocytes # (Auto) 0.4 0-1.3 10 ^3/uL Eosinophils # (Auto) 0.1 0-0.8 10 ^3/uL Basophils # (Auto) 0 0-0.2 10 ^3/uL Nucleated Red Blood Cells 0.1 % Erythrocyte Sedimentation Rate 54 H 0-20 mm/hr Sodium Level 140 136-145 mmol/L Potassium Level 4.0 3.5-5.1 mmol/L Chloride Level 102 98-107 mmol/L Carbon Dioxide Level 26 20-31 mmol/L Anion Gap 12 5-15 Blood Urea Nitrogen 13 9-23 mg/dL Creatinine 0.88 0.700-1.30 mg/dL Glomerular Filtration Rate Calc 111 >90 mL/min BUN/Creatinine Ratio 14.8 10.0-20.0 Serum Glucose 108 H 74-106 mg/dL Lactic Acid Level 1.0 0.4-2.0 mmol/L Calcium Level 9.0 8.7-10.4 mg/dL Total Bilirubin 0.3 0.2-1.0 mg/dL Aspartate Amino Transferase (AST) 19 13-40 U/L Alanine Aminotransferase (ALT) 20 7-40 U/L Alkaline Phosphatase 112 46-116 U/L C-Reactive Protein High Sensitivity 2.85 H <1.0 mg/dL B-Type Natriuretic Peptide 4.72 0-100 pg/mL Total Protein 8.3 H 5.7-8.2 g/dL Albumin 3.9 3.2-4.8 g/dL X-Ray, Labs, Meds, VS Comment 14:00 The patient has been re-assessed. CBC: WBC: 6.1x10e3/uL CMP: unremarkable. ERS: 54 CRP: 2.85 14:46 The patient reports he wants to go AMA (against medical advice), The patient has been informed about the risk and consequences to leave AMA, but still he wants to leave. Dr. Rodriguez has been inf ormed. Time of 1ST Reevaluation: 14:00 Reevaluation 1ST: Unchanged Time of 2ND Reevaluation: 14:46 Reevaluation 2ND: Unchanged Patient Education/Counseling: Diagnosis, Treatment, Prognosis, Need For Follow Up Family Education/Counseling: No Family Present Sepsis Sepsis Reasesment Focused Exam Orders: Laboratory Tests 10/4/25 14:00: Lactic Acid Level 1.0 Recent Procedure: No On Antibiotic Therapy: No Respiratory Rate >20: No Heart Rate >90: No Temp<36 C (96.8 F) or >38.3 C: No SBP <90 or MAP <65 mmHG: No New Acute Mental Status Change: No Is the patient on CPAP, BIPAP,: No IV fluid given: No Departure 1 Departure Time of Disposition: 14:51 Impression: Primary Impression: Open wound of both legs with complication Additional Impressions: Polysubstance abuse Homeless Left against medical advice Disposition: LEFT AGAINST MEDICAL ADVICE Condition: Other Additional Instructions: Left against medical advice Discharged With: Self Comments Goals of care discussed with the patient > 35 min. Discussed plan of care with Dr. Rodriguez Code status: Full code PCP: No established Plan discussed with: Patient. The patient reports he wants to go AMA (against medical advice), The patient has been informed about the risk and consequences to leave AMA, but still he wants to leave. Dr. Rodriguez has been informed. Critical Care Note Critical Care Time?: No Stability Stability form required: No Heart Score Heart Score: Heart Score Response (Comments) Value History N/A 0 EKG N/A 0 Age N/A 0 Risk Factors N/A 0 Troponin N/A 0 Total 0 FARZANA MCCRACKEN Aug 25, 2025 14:12 DIONISIO RODRIGUEZ DO Aug 25, 2025 14:51
[2025-08-25 14:51] LABS: Hematocrit 37.2 % (41.0-53.0); Hemoglobin 12.7 g/dL (13.5-17.5); Mean Corpuscular Hemoglobin 29.8 pg (28.0-32.0); Mean Corpuscular Volume 87.3 fL (80.0-100.0); Nucleated Red Blood Cells % 0.1 %
[2025-08-25 14:56] LABS: Alanine Aminotransferase 20 U/L (7-40); Albumin 3.9 g/dL (3.2-4.8); Alkaline Phosphatase 112 U/L (46-116); Anion Gap 12 (5-15); BUN/Creatinine Ratio 14.8 (10.0-20.0); Blood Urea Nitrogen 13 mg/dL (9-23); Calcium 9.0 mg/dL (8.7-10.4); Carbon Dioxide 26 mmol/L (20-31); Chloride 102 mmol/L (98-107); Potassium 4.0 mmol/L (3.5-5.1); Sodium 140 mmol/L (136-145)
[2025-08-25 14:57] LABS: Bilirubin, Total 0.3 mg/dL (0.2-1.0); Glucose 108 mg/dL (74-106); Total Protein 8.3 g/dL (5.7-8.2)
== END 2025-08-25 14:50 | disposition left against medical advice (07) ==
LOC: ER 13:24
DX: S81.802A Unspecified open wound, left lower leg, initial encounter (principal); S81.801A Unspecified open wound, right lower leg, initial encounter; F19.10 Other psychoactive substance abuse, uncomplicated; F20.9 Schizophrenia, unspecified; Z59.00 Homelessness unspecified; Z79.899 Other long term (current) drug therapy; X58.XXXA Exposure to other specified factors, initial encounter; Y93.89 Activity, other specified; Y92.89 Other specified places as the place of occurrence of the external cause; Y99.8 Other external cause status
CPT/HCPCS: 36415; 80053; 83605; 83880; 85025; 85652; 86141; 87040

== ENCOUNTER 2025-09-01 16:59 | Emergency (ER) | payer MEDICARE, MEDICAID ==
[~2025-09-01] VITALS: Ht 180.3 cm; Wt 86.2 kg
[2025-09-01 17:02] VITALS: BP 137/93; PULSE 88; RESP 20; TEMP 97.9; O2SAT 97
--- NOTE | 2025-09-01 19:23 | ED.PDOC ---
History of Present Illness(SKN HPI Comments 40 y/o M, with a history of polysubstance abuse, presents with c/c of bilateral lower leg and pain. Patient has a multiple open wounds on his bilateral lower extremities. Patient is not well kempt and dirty. Patient appears to be on methamphetamine at time of evaluation. Chief Complaint: Extremity Swelling Time Seen by MD: 18:50 Primary Care Provider: NONE History of Present Illness: Nurses Notes, Medications, Allergies Allergies: Coded Allergies: NO KNOWN ALLERGIES (Unverified , 10/19/22) Home Meds Active Scripts Cephalexin (KEFLEX CAPSULE) 250 Mg Cp, 1 CAP PO QID, #40 CAP Prov:GEGE HOUSTON PAC 02/10/25 Sulfamethoxazole W/Trimethopri (Bactrim Ds Tablet) 1 Tab Tb, 1 TAB PO BID for 7 Days, #14 TAB Prov:JOHN SMITHP 01/30/25 Permethrin (Elimite) 5 % Cre, 1 APPLIC TOP ONCE, #60 GRAMS 1 Refill Prov:JOHN SMITHP 01/30/25 Cephalexin Monohydrate (Cephalexin) 500 Mg Cap, 500 MG PO Q6HR for 7 Days, #28 CAP Prov:DIONISIO RODRIGUEZ DO 01/17/25 Ibuprofen Micronized (Ibuprofen) 800 Mg Tab, 800 MG PO Q8HP PRN, #20 TAB Prov:GEGE HOUSTON PAC 12/17/24 Sulfamethoxazole W/Trimethopri (Bactrim Ds Tablet) 1 Tab Tb, 1 TAB PO BID for 7 Days, #14 TAB Prov:GEGE HOUSTON PAC 12/17/24 Permethrin (Elimite) 5 % Cre, 7 APPLIC TOP ONCE, #60 GRAMS 1 Refill Prov:NANCY CARRANZA PAC 06/17/24 Cephalexin Monohydrate (Cephalexin) 500 Mg Cap, 1 CAP PO QID, #40 CAP Prov:CARLOS DE PAZ 05/25/24 Triamcinolone Acetonide (Triamcinolone Acetonide) 0.1 % Oin, 1 APPLIC TOP BID, #30 GRAMS Prov:CARLOS DE PAZ PA 05/25/24 Mupirocin (Pseudomonas Fluores (Mupirocin) 2 % Oin, 1 APPLIC TOP TID for 10 Days, #15 MG Prov:JOHN SMITH STRUCTURED CABLING TECHNICIAN 01/25/24 Cephalexin Monohydrate (Cephalexin) 500 Mg Cap, 1 CAP PO QID for 10 Days, #40 CAP Prov:JOHN SMITH STRUCTURED CABLING TECHNICIAN 01/25/24 Mupirocin (Pseudomonas Fluores (Mupirocin) 2 % Oin, 1 APPLIC EX TID for 10 Days, #15 MG Prov:MOLINA,NORALDA Q ESCALATOR INSTALLER 12/31/23 Cephalexin Monohydrate (Cephalexin) 500 Mg Cap, 1 CAP PO QID for 10 Days, #40 CAP Prov:MOLINA,NORALDA Q ESCALATOR INSTALLER 12/31/23 Diphenhydramine Hcl (Benadryl Allergy) 25 Mg Cap, 1 CAP PO Q6HPRN PRN, #30 CAP 0 Refills Take 1-2 caps PO every 6 hours as needed for itchiness. Max: 12 caps/24 hours Prov:COLLINS ROBERSON STRUCTURED CABLING TECHNICIAN 03/16/23 Hydrocortone (Hydrocortisone 1%) 1 Applic Ap, 1 APPLIC TOP BID for 7 Days, #30 GRAMS 0 Refills Prov:COLLINS ROBERSON STRUCTURED CABLING TECHNICIAN 03/16/23 Cephalexin ( Keflex 500) 500 Mg Cap, 1 CAP PO QID for 12 Days, #48 CAP Prov:JAQUELINE MONTOYA MD 11/12/22 Sulfamethoxazole W/Trimethopri (Bactrim Ds Tablet) 1 Tab Tb, 1 TAB PO BID for 12 Days, #24 TAB Prov:JAQUELINE MONTOYA MD 11/12/22 Mupirocin Calcium (Topical) (MUPIROCIN) 2 % Cre, 2 % EX BID for 5 Days, #1 CRE 1 application each nostril twice a day for 5 days Prov:ASIMTA DENNY MD 09/11/21 Doxycycline Hyclate (DOXYCYCLINE HYCLATE) 100 Mg Tab, 1 TAB PO BID, #20 TAB Prov:ASMITA DENNY MD 09/11/21 Reported Medications [Methadone] No Conflict Check, 50 MG PO 11/27/11 Information Source: Patient Mode of Arrival: Ambulatory Severity: Moderate Timing: Hours Duration: Since onset Prehospital treatment: None Location: Leg Mechanism: Spontaneous Onset Occurence: Outdoors Object: Unknown Wound Type: Abrasion Tetanus: UTD Associated Signs and Symptoms: Redness, Swelling, Pus Past Medical History PAST MEDICAL HISTORY: Depression, Schizophrenia Surgical History: Denies all surgeries Family History Family History: Reviewed,noncontributory to illness Social History Smoker: Non-Smoker Alcohol: Denies ETOH Use Drugs: Cocaine, Marijuana, Methamphetamine Lives In: Homeless Constitutional: denies: chills, diaphoresis, fatigue, fever, malaise, sweats, weakness, others EENTM: denies: blurred vision, double vision, ear bleeding, ear discharge, ear drainage, ear pain, ear ringing, eye pain, eye redness, hearing loss, mouth pain, mouth swelling, nasal discharge, nose bleeding, nose congestion, nose pain, photophobia, tearing, throat pain, throat swelling, voice changes, others Respiratory: denies: cough, hemoptysis, orthopnea, SOB at rest, shortness of breath, SOB with excertion, stridor, wheezing, others Cardiovascular: denies: chest pain, dizzy spells, diaphoresis, Dyspnea on exertion, edema, irregular heart beat, left arm pain, lightheadedness, palpitations, PND, syncope, others Gastrointestinal: denies: abdomen distended, abdominal pain, blood streaked bowels, constipated, diarrhea, dysphagia, difficulty swallowing, hematemesis, melena, nausea, poor appetite, poor fluid intake, rectal bleeding, rectal pain, vomiting, others Genitourinary: denies: burning, dysuria, flank pain, frequency, hematuria, incontinence, penile discharge, penile sore, pain, testicle pain, testicle swelling, urgency, others Neurological: denies: dizziness, fainting, headache, left sided numbness, left sided weakness, numbness, paresthesia, pre-existing deficit, right sided numbness, right sided weakness, seizure, speech problems, tingling, tremors, weakness, others Musculoskeletal: denies: back pain, gout, joint pain, joint swelling, muscle pain, muscle stiffness, neck pain, others Integumetry: reports: wounds (Multiple wounds to bilateral lower extremities.); denies: bruises, change in color, change in hair/nails, dryness, laceration, lesions, lumps, rash, others Allergic/Immunocompromised: denies: Difficulty Healing, Frequent Infections, Hives, Itching, others Hematologic/Lymphatic: denies: anemia, blood clots, easy bleeding, easy bruising, swollen glands, others Endocrine: denies: excessive hunger, excessive sweating, excessive thirst, excessive urination, flushing, intolerance to cold, intolerance to heat, unexplained weight gain, unexplained weight loss, others Psychiatric: denies: anxiety, bipolar disorder, depression, hopeless, panic disorder, schizophrenia, sleepless, suicidal, others All Other Systems: Reviewed and Negative (As per HPI) Physical Exam General Appearance: Mild Distress (Moderate distress due to wound concerns. Patient declined any pain medication while at the facility.), Normal HEENT: Normal ENT Inspection, Pharynx Normal, TMs Normal Neck: Full Range of Motion, Non-Tender, Normal, Normal Inspection Respiratory: Chest Non-Tender, Lungs Clear, No Accessory Muscle Use, No Respiratory Distress, Normal Breath Sounds Cardiovascular: No Edema, No JVD, No Murmur, No Gallop, Normal Peripheral Pulses, Regular Rate/Rhythm Breast Exam: Deferred Gastrointestinal: No Organomegaly, Non Tender, No Pulsatile Mass, Normal Bowel Sounds, Soft Genitalia: Deferred Pelvic: Deferred Rectal: Deferred Extremities: Other (Patient has multiple localized infected wounds to bilateral lower extremities. Some areas of weepage noted. Erythema noted throughout the area. No lymphangitis.) Neurologic: Alert Cerebellar Function: NOT DONE Reflexes: NOT DONE Skin: Dry, Normal Color, Warm Lymphatic: No Adenopathy Was a procedure done? Was a procedure done?: No Differential Diagnosis (INTG) Differential Diagnosis: Cellulitis, Contact Dermatitis, Erythema multiforme, Psoriasis, Viral exanthema X-Ray, Labs, Meds, VS Vital Signs Date Time Temp Pulse Resp B/P (MAP) Pulse Ox O2 Delivery O2 Flow Rate FiO2 09/01/25 17:02 97.9 88 20 137/93 97 97.9 Lab Test 09/01/25 19:19 Range/Units White Blood Count 5.0 4.4-10.8 10^3/uL Red Blood Count 4.12 L 4.5-5.90 10^6/uL Hemoglobin 12.1 L 13.5-17.5 g/dL Hematocrit 36.5 L 41.0-53.0 % Mean Corpuscular Volume 88.6 80.0-100.0 fL Mean Corpuscular Hemoglobin 29.4 28.0-32.0 pg Mean Corpuscular Hemoglobin Concent 33.2 32.0-36.0 g/dL Red Cell Distribution Width 12.8 11.8-14.3 % Platelet Count 183 140-450 10^3/uL Mean Platelet Volume 9.6 6.9-10.8 fL Neutrophils (%) (Auto) 55.9 37.0-80.0 % Lymphocytes (%) (Auto) 29.9 10.0-50.0 % Monocytes (%) (Auto) 9.6 0.0-12.0 % Eosinophils (%) (Auto) 4.1 0.0-7.0 % Basophils (%) (Auto) 0.5 0.0-2.0 % Neutrophils # (Auto) 2.8 1.6-8.6 10 ^3/uL Lymphocytes # (Auto) 1.5 0.4-5.4 10 ^3/uL Monocytes # (Auto) 0.5 0-1.3 10 ^3/uL Eosinophils # (Auto) 0.2 0-0.8 10 ^3/uL Basophils # (Auto) 0 0-0.2 10 ^3/uL Nucleated Red Blood Cells 0.0 % Sodium Level 141 136-145 mmol/L Potassium Level 4.5 3.5-5.1 mmol/L Chloride Level 101 98-107 mmol/L Carbon Dioxide Level 31 20-31 mmol/L Anion Gap 9 5-15 Blood Urea Nitrogen 13 9-23 mg/dL Creatinine 0.96 0.700-1.30 mg/dL Glomerular Filtration Rate Calc 102 >90 mL/min BUN/Creatinine Ratio 13.5 10.0-20.0 Serum Glucose 84 74-106 mg/dL Calcium Level 9.2 8.7-10.4 mg/dL X-Ray, Labs, Meds, VS Comment All studies performed in the ED were evaluated by me personally. Serum studies were unremarkable for any systemic infection. Patient has some wounds that will respond to outpatient antibiotic therapy. Patient was given his 1st dose of antibiotics tonight prior to discharge. Advise utilizing medication to completion. Time of 1ST Reevaluation: 21:04 Reevaluation 1ST: Improved Consultation: PCP Patient Education/Counseling: Diagnosis, Treatment Family Education/Counseling: Diagnosis, Treatment, No Family Present SEPSIS Sepsis Screen Date sepsis recognized/suspect: Sep 01, 2025 Time Sepsis recognized/suspect: 1702 Recent Procedure: No On Antibiotic Therapy: No Respiratory Rate >20: No Heart Rate >90: No Temp<36 C (96.8 F) or >38.3 C: No SBP <90 or MAP <65 mmHG: No New Acute Mental Status Change: No Is the patient on CPAP, BIPAP,: No Vital Signs Date Time Temp Pulse Resp B/P (MAP) Pulse Ox O2 Delivery O2 Flow Rate FiO2 09/01/25 17:02 97.9 88 20 137/93 97 97.9 Laboratory Tests Test 09/01/25 19:19 White Blood Count 5.0 10^3/uL (4.4-10.8) Departure 1 Departure Time of Disposition: 21:05 Impression: Primary Impression: Cellulitis of lower extremity Disposition: HOME / SELF CARE / HOMELESS Condition: Stable Additional Instructions: Advised patient utilize antibiotics as directed until completion as well as making sure to maintain clean and covered wounds until they are healed. e-Prescriptions Sulfamethoxazole W/Trimethopri (Bactrim Ds Tablet) 1 Tab Tb 1 TAB PO BID for 10 Days, #20 TAB Prov: GEGE HOUSTON PAC 09/01/25 Discharged With: Self Critical Care Note Critical Care Time?: No Stability Stability form required: No Heart Score Heart Score: Heart Score Response (Comments) Value History N/A 0 EKG N/A 0 Age N/A 0 Risk Factors N/A 0 Troponin N/A 0 Total 0 I personally scribed for GEGE HOUSTON PAC ([email or web address]) on 09/01/25 at 19:23. Electronically submitted by Evans Khoury ([email or web address]). GEGE HOUSTON PAC Sep 01, 2025 19:23
[2025-09-01 19:39] LABS: Hematocrit 36.5 % (41.0-53.0); Hemoglobin 12.1 g/dL (13.5-17.5); Mean Corpuscular Hemoglobin 29.4 pg (28.0-32.0); Mean Corpuscular Volume 88.6 fL (80.0-100.0); Nucleated Red Blood Cells % 0.0 %
[2025-09-01 19:44] LABS: Chloride 101 mmol/L (98-107); Potassium 4.5 mmol/L (3.5-5.1); Sodium 141 mmol/L (136-145)
[2025-09-01 19:45] LABS: Anion Gap 9 (5-15)
[2025-09-01 19:46] LABS: Calcium 9.2 mg/dL (8.7-10.4)
[2025-09-01 19:50] LABS: Glucose 84 mg/dL (74-106)
[2025-09-01 19:51] LABS: BUN/Creatinine Ratio 13.5 (10.0-20.0); Blood Urea Nitrogen 13 mg/dL (9-23)
[2025-09-01 19:56] LABS: Carbon Dioxide 31 mmol/L (20-31)
[2025-09-01] MEDS: SULFAMETHOX W/TRIMETH(800/160MG) DS TAB PO ONE (21:15)
== END 2025-09-01 21:30 | disposition home or self-care (01) ==
LOC: ER 17:04
DX: L03.116 Cellulitis of left lower limb (principal); L03.115 Cellulitis of right lower limb; F20.9 Schizophrenia, unspecified; F19.11 Other psychoactive substance abuse, in remission; Z59.00 Homelessness unspecified; Z79.899 Other long term (current) drug therapy
CPT/HCPCS: 36415; 80048; 85025